=== PATIENT | female | born 1990 | race Caucasian/White ===

== ENCOUNTER 2019-09-19 11:22 | Inpatient (IN) | payer SELFPAY ==
[2019-09-19 11:32] VITALS: BP 126/80; PULSE 92; RESP 18; TEMP 36.9; O2SAT 100; BMI 22.1
--- NOTE | 2019-09-19 12:01 | W.ED.PSYCH ---
HPI - Psych General: Chief Complaint: Psychiatric Symptoms Stated Complaint: mhe Time Seen by Provider: 09/19/19 12:01 Source: family Mode of arrival: ambulatory Limitations: no limitations History of Present Illness: HPI Narrative: Patient is a 28-year-old female who presents to ED today along with her grandmother and mother for complaints of psychosis/altered mental status; family states patient was living in [place] and was doing several drugs daily while there; she was recently placed in shelter for 3 weeks and 2 weeks ago the parents picked her up and brought her home; grandmother states since she has been home she has been acting very paranoid, speaking to herself, and acting bizarrely; they brought patient here for mental health evaluation Relieving factors: none Exacerbating factors: none Context: recent drug abuse Review of Systems General: Reports: ROS unobtainable due to mental status (pt responds I don't know to the majority of my questions ) PFSH ED PFSH: Statuses (acute, chronic, etc) shown below reflect problem list status as previously entered and may not be historically accurate Family History (Updated 09/15/19 @ 11:13 by Karla Casas LPN) Mother Hypertension Social History (Updated 09/15/19 @ 11:14 by Karla Casas LPN) Smoking and tobacco status: current every day smoker Second hand smoke exposure: No Alcohol intake: former Physical Exam Const: COMMON NORMALS: no apparent distress, oriented x3, alert and well nourished GENERAL APPEARANCE: cooperative Resp: COMMON NORMALS: normal respiratory effort and clear to auscultation bilaterally AUSCULTATION: clear to auscultation bilaterally Cardio: COMMON NORMALS: regular rate and regular rhythm RATE: regular rate RHYTHM: regular rhythm Neuro: COMMON NORMALS: oriented x3 SENSORIUM/ORIENTATION: Yes alert Psych: COMMON NORMALS: cooperative and speech normal APPEARANCE: Yes grossly normal SPEECH: Yes normal speech MOOD & AFFECT: Yes flat affect THOUGHT PROCESS: disorganized and confused ATTENTION/CONCENTRATION: Yes attention grossly impaired and Yes concentration grossly impaired MEMORY/COGNITION: Yes cognition grossly intact JUDGEMENT: poor MDM - Psych Lab Data: Labs: Lab Results 09/19/19 09/19/19 Range/Units 12:43 12:43 WBC 9.2 (4.0-10.0) 10^3/ uL RBC 4.21 (4.1-5.3) 10^6/u L Hgb 12.7 (11.5-15.3) g/dL Hct 40.0 (37.0-47.0) % MCV 95.0 (81-99) fL MCH 30.2 (28.0-34.0) pg MCHC 31.8 (30.0-36.0) g/dL RDW 14.5 (12.1-15.1) % Plt Count 325 (130-400) 10^3/c mm MPV 8.3 (7.4-10.4) fL Neut % (Auto) 66.1 % Lymph % (Auto) 24.5 % Whiteside % (Auto) 6.6 % Eos % (Auto) 1.7 % Baso % (Auto) 0.7 % Neut # (Auto) 6.1 (1.8-7.7) 10^3/u L Lymph # (Auto) 2.3 (0.8-4.8) 10^3/u L Whiteside # (Auto) 0.6 (0.2-0.9) 10^3/u L Eos # (Auto) 0.2 (0.0-0.8) 10^3/u L Baso # (Auto) 0.1 (0.0-0.1) 10^3/u L Nucleated RBC % (a uto) 0 % Nucleated RBCs # 0.0 /100WBC Sodium 136 (136-145) mmol/L Potassium 4.2 (3.5-5.1) mmol/L Chloride 99 (98-107) mmol/L Carbon Dioxide 27 (22-29) mmol/L Anion Gap 14.2 (5-19) BUN 11 (6-20) mg/dL Creatinine 0.5 (0.5-0.9) mg/dL GFR Calculation 148.0 H (90-130) mL/min Glucose 101 (74-109) mg/dL Calcium 10.2 H (8.6-10.0) mg/Dl Total Bilirubin 0.5 (0.15-1.2) mg/dL AST 16 (0-32) U/L ALT 26 (0-33) U/L Alkaline Phosphata se 68 (35-105) IU/L Total Protein 7.4 (6.6-8.7) g/dL Albumin 4.7 (3.5-5.2) g/dL Globulin 2.7 (1.3-4.6) g/dL Salicylates < 0.3 L (3-10) mg/dL Acetaminophen < 5.0 L (10-30) ug/mL Ethyl Alcohol < 10 (0-10) mg/dL Imaging Data^: CT Head: Radiologist's impression: [address] [address] [address] Scan Report Signed Patient: Janeth Díaz MR#: [id number] : 1990 Acct:[id number] Age/Sex: 28 / F ADM Date: 09/19/19 Loc: ER Attending Dr: Ordering Physician: Ivana Holman Date of Service: 09/19/19 Procedure(s): CT head wo con* [id number] Accession Number(s): [id number] Report Number: [id number] WS: [id number] CT scan of the head, 09/19/2019 Clinical Data: AMS Comparison: None. DLP: 741.[address] scans at [facility] use at least one of these dose optimization techniques: automated exposure control; mA and/or kV adjustment per patient size (includes targeted exams where dose is matched to clinical indication); or iterative reconstruction. Findings: The ventricular system is normal without shift. No recent infarct or hemorrhage is seen. There are no abnormal intracerebral masses. The cerebellum and brainstem are not remarkable. Bony windows of the skull and skull base show no fractures or erosions. The mastoid air cells, internal auditory canals, sella turcica, intraorbital contents, and paranasal sinuses are unremarkable. CT/CT head wo con* [id number] Impression: Negative CT scan of the head Dictated By: Diane Harrell MD Signed By: Diane Harrell MD Signed Date/Time:09/19/19 1321 DD/ 1319 Discharge Plan Discharge Patient Disposition: Xfer Psychiatric Hosp Clinical Impression: Acute psychosis Condition: Stable Coding Level of Care Code ED Bracelet Former for Chg Fwd Exam Problem Focused
[2019-09-19 12:04] VITALS: BP 120/82; PULSE 91; RESP 16; TEMP 36.7; O2SAT 100
--- NOTE | 2019-09-19 12:07 | PC.NURSE ---
pt denies and si or hi, sitter not required.
--- NOTE | 2019-09-19 12:31 | CT_ITS ---
WS: [id number] CT scan of the head, 09/19/2019 Clinical Data: AMS Comparison: None. DLP: 741.[address] scans at [facility] use at least one of these dose optimization techniques: automat ed exposure control; mA and/or kV adjustment per patient size (includes targeted exams where dose is matched to clinical indication); or iterative reconstruction. Findings: The ventricular system is normal without shift. No recent infarct or hemorrhage is seen. There are no abnormal intracerebral masses. The cerebellum and brainstem are not remarkable. Bony windows of the skull and skull base show no fractures or erosions. The mastoid air cells, quality internship al auditory canals, sella turcica, intraorbital contents, and paranasal sinuses are unremarkable. CT/CT head wo con* [id number] Impression: Negative CT scan of the head
[2019-09-19 12:57] LABS: Basophils # 0.1 10^3/uL (0.0-0.1); Basophils % 0.7 %; Eosinophils # 0.2 10^3/uL (0.0-0.8); Eosinophils % 1.7 %; Hemoglobin 12.7 g/dL (11.5-15.3); Lymphocytes # 2.3 10^3/uL (0.8-4.8); Lymphocytes % 24.5 %; Mean Corpuscular HGB Conc 31.8 g/dL (30.0-36.0); Mean Corpuscular Hemoglobin 30.2 pg (28.0-34.0); Mean Platelet Volume 8.3 fL (7.4-10.4); Monocytes # 0.6 10^3/uL (0.2-0.9); Monocytes % 6.6 %; Neutrophils # 6.1 10^3/uL (1.8-7.7); Neutrophils % 66.1 %; Nucleated Red Blood Cells % 0 %; Platelet Count 325 10^3/cmm (130-400); Red Blood Count 4.21 10^6/uL (4.1-5.3); Red Cell Distribution Width 14.5 % (12.1-15.1); White Blood Count 9.2 10^3/uL (4.0-10.0)
[2019-09-19 13:08] LABS: Alanine Aminotransferase 26 U/L (0-33); Albumin Level 4.7 g/dL (3.5-5.2); Alkaline Phosphatase 68 IU/L (35-105); Anion Gap 14.2 (5-19); Aspartate Amino Transferase 16 U/L (0-32); Blood Urea Nitrogen 11 mg/dL (6-20); Calcium 10.2 mg/Dl (8.6-10.0); Carbon Dioxide 27 mmol/L (22-29); Chloride 99 mmol/L (98-107); Globulin 2.7 g/dL (1.3-4.6); Glucose 101 mg/dL (74-109); Potassium 4.2 mmol/L (3.5-5.1); Sodium 136 mmol/L (136-145); Total Bilirubin 0.5 mg/dL (0.15-1.2); Total Protein 7.4 g/dL (6.6-8.7)
[2019-09-19 13:10] LABS: Acetaminophen < 5.0 ug/mL (10-30); Alcohol Level < 10 mg/dL (0-10); Salicylate < 0.3 mg/dL (3-10)
[2019-09-19 13:53] LABS: HCG, Serum Qual Negative (Negative)
[2019-09-19 14:22] VITALS: BP 113/70; PULSE 88; RESP 18; O2SAT 98
[2019-09-19 14:31] LABS: Amphetamines Screen Urine Negative (Negative); Barbiturates Screen Urine Negative (Negative); Benzodiazepines Screen Urine Negative (Negative); Cocaine Screen Urine Negative (Negative); Opiate Screen Urine Negative (Negative); PCP Screen Urine Negative (Negative); THC Screen Urine Negative (Negative)
[2019-09-19 14:57] VITALS: BP 105/71; PULSE 80; RESP 18; TEMP 36.6; O2SAT 100
[2019-09-19] MEDS: ARIPiprazole 10 mg Tablet PO (16:29)
[2019-09-19 20:30] VITALS: BP 99/60; PULSE 96; RESP 16; TEMP 36.2; O2SAT 97
[2019-09-20 06:00] VITALS: BP 114/72; PULSE 73; RESP 15; TEMP 36.6; O2SAT 98
--- NOTE | 2019-09-20 07:32 | PM.NHP ---
Providers/Chief Complaint Admitting Physician: Chiki Ridley MD Chief Complaint: mhe HPI NPU History of Present Illness Janeth Díaz is a 28 year old female presented to the emergency room secondary to concerns raised by her family related to her having confusion and not functioning well. She was admitted to the neuro psych unit and initially tried to discharge AMA. Upon meeting with her and talking to her became clear that she was floridly psychotic had significant thought disorder and was incapable of making informed consent or managing even the basic daily challenges. She is a horrible historian with inability to really give any clear answers on just about anything. Her date is the only piece of information that she was able to access with limited difficulty. Otherwise essentially all historical data from her life is not reachable. She doesn't know if her parents are still, she didn't know where she was prior to being in [place] she does not how long she's been in [place] she does know she has siblings she has no any family history she has a known history of her childhood or anything else. She is able to identify his is having the inability of forming thoughts or understanding thoughts as clearly she is accustomed but outside of that acknowledgment of disability is not much else she can add to the conversation at this time. We discussed the risks benefits and alternatives of initiating Abilify and she endorsed understanding and agreed to proceed as is documented in his note. We are reaching out to the family to try to get collateral information and engaged them in assisting us in making decisions in her best interest. At her level of dysfunction we will likely have to move to a 21-day-hold. Meds NPU Home Medications Medication Instructions Recorded Confirmed Type No Known Home Medications 09/15/19 09/19/19 History Allergies Allergy/AdvReac Type Severity Reaction Status Date / Time cefixime [From Suprax] Allergy Severe anaphylaxis Verified 09/15/19 11:11 sertraline [From Zoloft] Allergy anaphylaxis Verified 09/15/19 11:11 PFSH NPU PFSH: Statuses (acute, chronic, etc) shown below reflect problem list status as previously entered and may not be historically accurate Family History (Updated 09/15/19 @ 11:13 by Karla Casas LPN) Mother Hypertension Social History (Updated 09/15/19 @ 11:14 by Karla Casas LPN) Smoking and tobacco status: current every day smoker Second hand smoke exposure: No Alcohol intake: former Mental Status Exam MSE Comments: This is a well-nourished well-developed slender white female with adequate progress, limiting grooming but appropriate eye contact. No abnormal movements. Cooperative with exam and no acute distress. Speech was normal rate and volume mood described as confused, affect congruent. Thought process organized. Thought content: Patient denied any suicidal or homicidal ideations, there were no delusions reported or noted, she denied any auditory or visual hallucinations. Attention and concentration are impaired and memory is unreliable/impaired but none were formally tested. She is alert and oriented times person and place. Insight and judgment are impaired. Vitals/I&O/Wt Last Vital Signs Temp 98.5 F 09/21/19 06:00 Pulse 79 09/21/19 06:00 Resp 18 09/21/19 06:00 BP 102/69 09/21/19 06:00 Pulse Ox 98 09/21/19 06:00 Weight last 48 hrs Weight 56.699 kg A&P Additional A&P Information Additional A&P Information: This is a 28-year-old white female with significant thought disorder which is manifesting with inability to give basic information or have a normal discussion who presents having started on Abilify yesterday and reports that she is tolerating the medication without difficulty. 1. Continue current medication. 2. Encourage individual, group and milieu therapy. 3. Continue every 15 minute checks for safety. 4. Get as much collateral information from family to try to get some sense of what her exposures have been. Involuntary Hold Information 96 Hour Hold: 96 Hour Involuntary Admission: No Attestations NPU Medical Necessity Statement*: Inpatient hospitalization is medically necessary and the clinically appropriate intervention at this time. She will be in the hospital for over 2 midnights. We will monitor medication and titrate to effect. Likely length of stay 4-6 days. Coding Level of Care Code Acute Instrument Technician Helper for Veronika Rosenberg
[2019-09-20] MEDS: ARIPiprazole 10 mg Tablet PO (08:39)
[2019-09-20 13:43] VITALS: BP 102/62; PULSE 116; RESP 20; TEMP 36.7; O2SAT 98
[2019-09-20 19:40] VITALS: BP 101/62; PULSE 108; RESP 18; TEMP 36.9; O2SAT 98
[2019-09-21 06:00] VITALS: BP 102/69; PULSE 79; RESP 18; TEMP 36.9; O2SAT 98
[2019-09-21] MEDS: ARIPiprazole 10 mg Tablet PO (08:57)
--- NOTE | 2019-09-21 10:31 | PM.NPN ---
Subjective NPU Subjective: Interval history: Janeth presents today reporting that she is feeling less anxious and down but still feeling very confused. We tried to revisit some historical data that was unavailable to her recollection during her initial evaluation yesterday and she continues to have profound deficits in thought processing and essentially has no access to her historical information and memories. She denies any problems with the Abilify and reports that she is eating and sleeping all right but she is really still challenged by the lives thought disorder. She was only able to identify that she remembers using a needle to inject drugs but she has no recollection of what drugs she was using. Mental Status Exam MSE Comments: This is a well-nourished well-developed slender white female with adequate dress, limiting grooming but appropriate eye contact. No abnormal movements. Cooperative with exam and no acute distress. Speech was normal rate and volume. Mood described as I don't know, affect congruent. Thought process disorganized. Thought content: Patient denied any suicidal or homicidal ideations, there were no delusions reported or noted, she denied any auditory or visual hallucinations. Attention and concentration are impaired and memory is unreliable/impaired but none were formally tested. She is alert and oriented times person and place. Insight and judgment are impaired. Vitals/I&O/Wt Last Vital Signs Temp 98.5 F 09/21/19 06:00 Pulse 79 09/21/19 06:00 Resp 18 09/21/19 06:00 BP 102/69 09/21/19 06:00 Pulse Ox 98 09/21/19 06:00 Weight last 48 hrs Weight 56.699 kg A&P Additional A&P Information Additional A&P Information: This is a 28-year-old white female with significant thought disorder which is manifesting with inability to give basic information or have a normal discussion who presents having started on Abilify yesterday and reports that she is tolerating the medication without difficulty. 1. Continue current medication. 2. Encourage individual, group and milieu therapy. 3. Continue every 15 minute checks for safety. 4. Get as much collateral information from family to try to get some sense of what her exposures have been Involuntary Hold Information 96 Hour Hold: 96 Hour Involuntary Admission: No Attestations NPU Medical Necessity Statement*: Inpatient hospitalization is medically necessary and the clinically appropriate intervention at this time. We will monitor medication and titrate to effect. Likely length of stay 4-6 days. Coding Level of Care Code Acute Academic Support Director for Veronika Rosenberg
[2019-09-21] MEDS: nicotine 21 mg Patch 1 PATCH TRANSDERMA (13:35)
[2019-09-21 14:00] VITALS: BP 110/73; PULSE 101; RESP 18; TEMP 36.7; O2SAT 97
[2019-09-21 19:52] VITALS: BP 101/62; PULSE 104; RESP 18; TEMP 36.8; O2SAT 97
[2019-09-22 06:00] VITALS: BP 104/78; PULSE 86; RESP 20; TEMP 36.9; O2SAT 97
--- NOTE | 2019-09-22 09:20 | PM.NPN ---
Subjective NPU Subjective: Interval history: Janeth presented today reporting that things are going better. It was the first day I was able to ask historical questions which should be simple and get any kind of clear responses. She was able to articulate that she was confused and that she is starting to think better for the first time in a while. We discussed the injection for Abilify although she reports she would be open to taking the medication regularly. We began discussing discharge in the near future. She reports that she is eating and sleeping well. Mental Status Exam MSE Comments: This is a well-nourished well-developed slender white female with adequate dress, improving grooming and appropriate eye contact. No abnormal movements. Cooperative with exam in no acute distress. Speech was normal rate and volume. Mood described as much better, affect congruent. Thought process more organized. Thought content: Patient denied any suicidal or homicidal ideations, there were no delusions reported or noted, she denied any auditory or visual hallucinations. Attention and concentration are more intact and memory is improving but none were formally tested. She is alert and oriented x 3. Insight and judgment are improving. Vitals/I&O/Wt Last Vital Signs Temp 98.2 F 09/22/19 20:40 Pulse 109 H 09/22/19 20:40 Resp 18 09/22/19 20:40 BP 102/59 09/22/19 20:40 Pulse Ox 98 09/22/19 20:40 A&P Additional A&P Information Additional A&P Information: This is a 28-year-old white female who presented with significant thought disorder manifesting with inability to give basic information or have a normal discussion who presents with significant improvement on Abilify. 1. Continue current medication. 2. Encourage individual, group and milieu therapy. 3. Continue every 15 minute checks for safety. 4. Encourage engagement in sober living treatment at the highest level of care to which she is willing to commit. Involuntary Hold Information 96 Hour Hold: 96 Hour Involuntary Admission: No Attestations NPU Medical Necessity Statement*: Inpatient hospitalization is medically necessary and the clinically appropriate intervention at this time. We will monitor medication and titrate to effect. Likely length of stay 1-2 days. Coding Level of Care Code Acute Junior Media Buyer for Veronika Rosenberg
[2019-09-22] MEDS: ARIPiprazole 10 mg Tablet PO (09:58)
[2019-09-22] MEDS: nicotine 21 mg Patch 1 PATCH TRANSDERMA (12:17)
[2019-09-22 13:57] VITALS: BP 109/72; PULSE 108; RESP 20; TEMP 36.7; O2SAT 98
[2019-09-22 20:40] VITALS: BP 102/59; PULSE 109; RESP 18; TEMP 36.8; O2SAT 98
[2019-09-23 06:00] VITALS: BP 143/87; PULSE 68; RESP 19; TEMP 36.4; O2SAT 98
[2019-09-23] MEDS: ARIPiprazole 10 mg Tablet PO (08:42)
[2019-09-23] MEDS: nicotine 2 mg Gum BUCCAL (10:05)
[2019-09-23 14:00] VITALS: BP 102/66; PULSE 91; RESP 19; TEMP 36.7; O2SAT 100
--- NOTE | 2019-09-23 15:54 | P.DS_ITS ---
Diagnoses at Discharge Discharge Diagnosis (1) Depressive disorder: Status: Acute Reason for Visit Reason for Visit: Reason For Visit: mhe Brief History: HPI NPU History of Present Illness Janeth Díaz is a 28 year old female presented to the emergency room secondary to concerns raised by her family related to her having confusion and not functioning well. She was admitted to the neuro psych unit and initially tried to discharge AMA. Upon meeting with her and talking to her became clear that she was floridly psychotic had significant thought disorder and was incapable of making informed consent or managing even the basic daily challenges. She is a horrible historian with inability to really give any clear answers on just about anything. Her date is the only piece of information that she was able to access with limited difficulty. Otherwise essentially all historical data from her life is not reachable. She doesn't know if her parents are still, she didn't know where she was prior to being in [place] she does not how long she's been in [place] she does know she has siblings she has no any family history she has a known history of her childhood or anything else. She is able to identify his is having the inability of forming thoughts or understanding thoughts as clearly she is accustomed but outside of that acknowledgment of disability is not much else she can add to the conversation at this time. We discussed the risks benefits and alternatives of initiating Abilify and she endorsed understanding and agreed to proceed as is documented in his note. We are reaching out to the family to try to get collateral information and engaged them in assisting us in making decisions in her best interest. At her level of dysfunction we will likely have to move to a 21-day-hold. Hospital Course Hospital Course Janeth presented to the emergency room having significant thought disorder and confusion with a significant history of addiction but reportedly no significant use in the past 5 weeks. She was admitted to the neuropsychiatric unit on a voluntary admission and immediately tried to discharge AMA. This repairer typewriter had a conversation with her and reason as best I could about her clear thought disorder and desire for us to help her and she agreed. She was initiated on Abilify 10 mg p.o. every morning and responded robustly. She day by day had significant improvement in clarity. We discussed the risks benefits and alternatives of starting the long-acting injection however she expressed a desire to continue with oral medication with an openness for the injection once they figure out logistically and financially how they would do that. During the hospitalization she had routine laboratory studies which were within normal limits except for a few outliers. Additionally, she had a general medical evaluation which was also within normal limits and revealed no acute processes. Discharge Summary At the time of discharge she denied all lethality, her mood had improved, her thought disorder was improving dramatically and she agreed to follow-up with the outpatient services arranged by social work. She had received the maximum benefit from an inpatient hospitalization, so she was discharged. Inpatient hospitalization is not medically necessary or the clinically appropriate intervention at this time. Patient is desirous of resuming outpatient treatment so was discharged. Involuntary Hold Information 96 Hour Hold: 96 Hour Involuntary Admission: No Mental Status Exam 2 MSE Comments: This is a well-nourished well-developed slender white female with adequate dress, improving grooming and appropriate eye contact. No abnormal movements. Cooperative with exam in no acute distress. Speech was normal rate and volume. Mood described as much better, affect congruent. Thought process more organized. Thought content: Patient denied any suicidal or homicidal ideations, there were no delusions reported or noted, she denied any auditory or visual hallucinations. Attention and concentration are more intact and memory is improving but none were formally tested. She is alert and oriented x 3. Insight and judgment are improving. Discharge Data Data Completed and Pending: Completed Studies During Hospitalization Category Date Time Status CT head wo con* 7 0450 Urgent Cat Scan 09/19/19 12:31 Completed Vitals: Last Vital Signs Temp 98.0 F 09/23/19 14:00 Pulse 91 09/23/19 14:00 Resp 19 H 09/23/19 14:00 BP 102/66 09/23/19 14:00 Pulse Ox 100 09/23/19 14:00 Discharge Plan Discharge Patient Disposition: Home, Self-Care Condition: Stable Prescriptions: New aripiprazole 10 mg Tablet 10 mg PO DAILY 30 Days Qty: 30 RF: 1 No Action No Known Home Medications RF: 0 Discharge Orders: Discharge Order (Routine); Ordered 09/23/19 Ordered By: Chiki Ridley Activity Restrictions/Additional Instructions: Follow-up at [facility] Walk-in hours 7:30-2:30 Thursday through Thursday at [facility] ([facility]) [address] [facility] [address] [place] [id number] Be sure to call and check on getting your appointment as soon as possible. It is recommended to get talk therapy and case management as well as psychiatric medication management. [facility] [place] is a resource to help address substance abuse issues. Address: [address] [place] [id number] This is an all women facility.Financial assistance may be available. Discharge Date/Time: 09/23/19 16:16 Discharge Attestations NPU Time Spent in Discharge Care*: greater than 30 min Specific Discharge Activities: Specific discharge activities: educating patient, educating and/or supporting family/caregiver, discussing with case management assistant/social workers/dc planners, documenting/other paperwork and evaluating patient/reviewing data Coding Level of Care Code Acute Inbound Call Center Representative for Veronika Rosenberg Diagnoses Depressive disorder F32.9
== END 2019-09-23 16:16 | disposition home or self-care (01) | DRG 881 ==
LOC: ER 13:37 → NP 14:18
PROVIDERS: Physician Assistant; Admitting Provider Psychiatry & Neurology Psychiatry; Emergency Provider Emergency Medicine; Visit Provider Psychiatry & Neurology Psychiatry
DX: F32.9 Major depressive disorder, single episode, unspecified (principal); F17.210 Nicotine dependence, cigarettes, uncomplicated
CPT/HCPCS: 36415; 70450; 80053; 80307; 84703; 85025; 99284

== ENCOUNTER → 2019-10-10 10:49 | Outpatient (BNVA) | payer SELFPAY | PROVIDERS: PCP Family Medicine; Visit Provider Family Medicine | DX: F41.1 Generalized anxiety disorder (principal); A64 Unspecified sexually transmitted disease; Z12.4 Encounter for screening for malignant neoplasm of cervix | CPT/HCPCS: 87491; 87591; 87661; 88175 ==

== ENCOUNTER 2020-03-04 02:51 | Emergency (ER) | payer MEDICAID, SELFPAY ==
[2020-03-04 02:56] VITALS: BP 121/75; PULSE 78; RESP 16; TEMP 36.9; O2SAT 98
[2020-03-04 04:17] VITALS: BP 98/60; PULSE 61; RESP 18; O2SAT 96
[2020-03-04 04:17] LABS: Basophils % 0.4 %; Eosinophils # 0.1 10^3/uL (0.0-0.8); Eosinophils % 1.3 %; Hematocrit 42.3 % (37.0-47.0); Hemoglobin 14.1 g/dL (11.5-15.3); Lymphocytes % 23.2 %; Mean Corpuscular HGB Conc 33.3 g/dL (30.0-36.0); Mean Corpuscular Hemoglobin 31.3 pg (28.0-34.0); Mean Corpuscular Volume 93.8 fL (81-99); Mean Platelet Volume 9.3 fL (7.4-10.4); Monocytes # 0.7 10^3/uL (0.2-0.9); Monocytes % 8.7 %; Neutrophils # 5.6 10^3/uL (1.8-7.7); Neutrophils % 66.2 %; Nucleated Red Blood Cells % 0 %; Platelet Count 224 10^3/cmm (130-400); Red Blood Count 4.51 10^6/uL (4.1-5.3); Red Cell Distribution Width 11.6 % (12.1-15.1); White Blood Count 8.4 10^3/uL (4.0-10.0)
[2020-03-04] MEDS: sodium chloride 0.9% 1,000 ML 999 ML IV (04:17)
--- NOTE | 2020-03-04 04:19 | ED_ITS ---
HPI - General Adult General: Chief complaint: General Medical Stated complaint: 16 weeks preg; back pain Time Seen by Provider: 03/04/20 03:43 History of Present Illness: HPI narrative: 29-year-old female who states that she is 16 weeks . She is a G4, P3. She presents with lower back and pelvic discomfort since last evening. She states it is hard to get comfortable. She denies any vaginal bleeding or discharge. She states she has been nauseated, but has not vomited. There is no fever. There is no diarrhea. There is no pain with urination. Onset (ago): hour(s) Location: pelvis Radiation: back Severity: moderate Quality: aching Pain Consistency: constant Relieving factors: none Exacerbating factors: movement Associated symptoms: Reports nausea; Deny chest pain, cough, dyspnea, fevers/chills, headache(s), rash or vomiting Review of Systems Const: Denies: fever(s) or chills Eyes: Denies: change in vision or blurry vision ENMT: Denies: odynophagia, dental pain, change in hearing, epistaxis, post nasal drip or sinus pain Card: Denies: chest pain Resp: Denies: dyspnea GI: Reports: nausea; Denies: vomiting : Denies: dysuria, urinary frequency, urinary urgency or hematuria Musc: Reports: back pain; Denies: neck pain Skin/Breast: Denies: rash, pruritus or erythema Neuro: Denies: headache(s), dizziness or vertigo Psych: Denies: anxiety PFSH ED PFSH: Medical History (Updated 03/04/20 @ 04:57 by Edouard Ovalles DO) Acute psychosis Chronic post-traumatic stress disorder BRAXTON (generalized anxiety disorder) BRAXTON (generalized anxiety disorder) 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 Surgical History (Updated 02/20/20 @ 22:27 by Kylah Ridley MD) Hx of tonsillectomy S/P tonsillectomy Family History Mother Hypertension Social History Smoking and tobacco status: former smoker Quit status (tobacco): not considering quitting Second hand smoke exposure: Yes Smoking risk assessment/counseling performed?: No Alcohol intake: never Desire information about substance/drug rehabilitation?: No Counseling given: Yes Other details last substance use: HAS USED OPIATES, METH, CRACK COCAINE, AND ACID Current gender identity: Female Female Reproductive History: Date of last menstrual period: 11/11/19 Physical Exam Const: GENERAL APPEARANCE: well developed ORIENTATION/CONSCIOUSNESS: Yes oriented to person, Yes oriented to place and Yes oriented to time HENMT: COMMON NORMALS: normocephalic, external ears normal and Normal external nose present HEAD & SCALP: normocephalic; no scalp tenderness FACE & SINUS: normal facial exam NOSE: Normal external nose present and No nasal discharge present EXTERNAL EAR: Yes external ears normal THROAT: posterior oropharynx normal; no peritonsillar mass Eye: COMMON NORMALS: Equal, round and reactive pupils present, EOMs intact bilaterally and conjunctivae normal EYELID: eyelids normal CONJUNCTIVA: Yes conjunctivae normal PUPIL: Yes Equal, round and reactive pupils present Neck/C-Spine: GENERAL: No tracheal deviation Chest: COMMONS NORMALS: normal inspection of the chest CHEST: No tenderness Resp: COMMON NORMALS: clear to auscultation bilaterally EFFORT & INSPECTION: No tachypneic, No respiratory distress, No retractions, No uses accessory muscles and No tracheal deviation AUSCULTATION: clear to ausc ultation bilaterally, no rhonchi, no wheezes and lung sounds not diminished Cardio: COMMON NORMALS: regular rate and regular rhythm RATE: regular rate RHYTHM: regular rhythm HEART SOUNDS: no murmurs PERIPHERAL PULSES: radial pulses present GI: INSPECTION: No abdominal distension AUSCULTATION: No Hyperactive bowel sounds present and No Hypoactive bowel sounds present PALPATION: Yes Tenderness to palpation present (GI) (Diffuse lower), No Guarding due to palpation present (GI) and No Rigid due to palpation PERCUSSION: no dullness to percussion and no tympanic to percussion Neuro: SENSORIUM/ORIENTATION: Yes oriented to person, Yes oriented to place and Yes oriented to time Psych: COMMON NORMALS: mental status grossly normal Skin: COMMON NORMALS: no rashes or lesions noted GENERAL SKIN EXAM: no rashes or lesions noted Course Vital Signs: Vital signs: Vital Signs Temperature 98.4 F 03/04/20 02:56 Pulse Rate 77 03/04/20 04:51 Respiratory Rate 17 03/04/20 04:51 Blood Pressure 99/61 03/04/20 04:51 Pulse Oximetry 97 03/04/20 04:51 MDM - General Adult MDM Narrative: Medical decision making narrative: 29-year-old G4, P3. She is experiencing lower abdominal bilateral and back discomfort. It is crampy in nature. There is no vaginal bleeding or discharge. Bedside ultrasound reveals a normal-appearing fetus measuring 17 weeks 1 day by [facility]PD. There is positive movement. Heart rate is 170. There is an appropriate fluid level. White blood cell count 8.4. Hemoglobin 14. Electrolytes and renal function are normal. Urinalysis is negative. She will be allowed home. Lab Data: Labs: Lab Results 03/04/20 03/04/20 03/04/20 Range/Units 04:10 04:10 04:10 WBC 8.4 (4.0-10.0) 10^3/ uL RBC 4.51 (4.1-5.3) 10^6/u L Hgb 14.1 (11.5-15.3) g/dL Hct 42.3 (37.0-47.0) % MCV 93.8 (81-99) fL MCH 31.3 (28.0-34.0) pg MCHC 33.3 (30.0-36.0) g/dL RDW 11.6 L (12.1-15.1) % Plt Count 224 (130-400) 10^3/c mm MPV 9.3 (7.4-10.4) fL Neut % (Auto) 66.2 % Lymph % (Auto) 23.2 % [place] % (Auto) 8.7 % Eos % (Auto) 1.3 % Baso % (Auto) 0.4 % Neut # (Auto) 5.6 (1.8-7.7) 10^3/u L Lymph # (Auto) 2.0 (0.8-4.8) 10^3/u L [place] # (Auto) 0.7 (0.2-0.9) 10^3/u L Eos # (Auto) 0.1 (0.0-0.8) 10^3/u L Baso # (Auto) 0.0 (0.0-0.1) 10^3/u L Nucleated RBC % (a uto) 0 % Nucleated RBCs # 0.0 /100WBC Sodium 138 (136-145) mmol/L Potassium 4.5 (3.5-5.1) mmol/L Chloride 100 (98-107) mmol/L Carbon Dioxide 24 (22-29) mmol/L Anion Gap 18.5 (5-19) BUN 7 (6-20) mg/dL Creatinine 0.5 (0.5-0.9) mg/dL GFR Calculation 146.9 H (90-130) mL/min Glucose 84 (65-115) mg/dL Calculated Osmolal ity 281 L (285-295) mOsm/k g Calcium 9.8 (8.5-10.5) mg/dL Total Bilirubin 0.2 (0.15-1.2) mg/dL AST 15 (0-32) U/L ALT 9 (0-33) U/L Alkaline Phosphata se 42 (35-105) IU/L Total Protein 7.1 (6.6-8.7) g/dL Albumin 4.4 (3.5-5.2) g/dL Globulin 2.7 (1.3-4.6) g/dL Lipase 37 (13-60) U/L Ser , [place] 20117.00 mIU/mL Urine Color Straw (Yellow) Urine Appearance Clear (CLEAR) Urine pH 7 (5-7) Ur Specific Gravit y 1.005 (1.005-1.030) Urine Protein Neg (Negative) Urine Glucose (UA) Norm (Normal) Urine Ketones Negative (Negative) Urine Blood Neg (Negative) Urine Nitrate Negative (Negative) Urine Bilirubin Neg (NEGATIVE) Urine Urobilinogen Norm (Negative) mg/dL Ur Leukocyte [place] ase Negative (Negative) Discharge Plan Discharge Patient Disposition: Home, Self-Care Clinical Impression: Back pain affecting in second trimester Condition: Stable Prescriptions: No Action prenat.vits,venus,[id number] Tablet 1 tab PO DAILY RF: 0 buspirone 15 mg tablet 15 mg PO .3x daily Qty: 90 RF: 2 Discharge Orders: Discharge Order (Routine); Ordered 03/04/20 Ordered By: Edouard Ovallse Referrals: Kylah Ridley MD [Primary Care Provider] - 4-7 days Discharge Diet: Usual diet Discharge Activity: Increase activity as tolerated Patient Instructions: Round Ligament Pain Activity Restrictions/Additional Instructions: Return for fever greater than 100, vaginal bleeding or discharge, worsening pain, vomiting liquids or medications, other concerning symptoms Coding Level of Care Code ED Extension Service Specialist for Chg Fwd Exam Comprehensive
[2020-03-04 04:29] LABS: Add Urine Microscopic? NO
[2020-03-04 04:36] LABS: Urine Appearance Clear (CLEAR); Urine Color Straw (Yellow)
[2020-03-04 04:37] LABS: Bilirubin Urine Neg (NEGATIVE); Blood Urine Neg (Negative); Glucose Urine UA Norm (Normal); Ketones Urine Negative (Negative); Leukocyte Esterase Urine Negative (Negative); Nitrate Urine Negative (Negative); Protein Urine Neg (Negative); Specific Gravity, Urine 1.005 (1.005-1.030); Urobilinogen Urine Norm (Negative); pH Urine 7 (5-7)
[2020-03-04 04:41] LABS: Alanine Aminotransferase 9 U/L (0-33); Albumin Level 4.4 g/dL (3.5-5.2); Alkaline Phosphatase 42 IU/L (35-105); Anion Gap 18.5 (5-19); Aspartate Amino Transferase 15 U/L (0-32); Blood Urea Nitrogen 7 mg/dL (6-20); Calcium 9.8 mg/dL (8.5-10.5); Carbon Dioxide 24 mmol/L (22-29); Chloride 100 mmol/L (98-107); Globulin 2.7 g/dL (1.3-4.6); Glomerular Filtration Rate 146.9 mL/min (90-130); Glucose 84 mg/dL (65-115); Lipase 37 U/L (13-60); Osmolality Calculated 281 mOsm/kg (285-295); Potassium 4.5 mmol/L (3.5-5.1); Sodium 138 mmol/L (136-145); Total Bilirubin 0.2 mg/dL (0.15-1.2); Total Protein 7.1 g/dL (6.6-8.7)
[2020-03-04 04:51] VITALS: BP 99/61; PULSE 77; RESP 17; O2SAT 97
[2020-03-04 05:17] VITALS: BP 97/59; PULSE 66; RESP 17; O2SAT 97
[2020-03-04 05:43] VITALS: BP 91/55; PULSE 67; RESP 15; O2SAT 96
== END 2020-03-04 05:45 | disposition home or self-care (01) ==
PROVIDERS: Emergency Provider Emergency Medicine; PCP Family Medicine
DX: O26.892 Other specified pregnancy related conditions, second trimester (principal); M54.9 Dorsalgia, unspecified; Z3A.16 16 weeks gestation of pregnancy; Z87.891 Personal history of nicotine dependence
CPT/HCPCS: 12345; 80053; 81003; 83690; 84702; 85025; 96360; 99283; J7030

== ENCOUNTER → 2020-03-23 12:58 | Outpatient (BNVA) | payer MEDICAID, SELFPAY | PROVIDERS: PCP Family Medicine; Visit Provider Nurse Practitioner Women's Health | DX: O09.899 Supervision of other high risk pregnancies, unspecified trimester (principal); O09.30 Supervision of pregnancy with insufficient antenatal care, unspecified trimester; O99.340 Other mental disorders complicating pregnancy, unspecified trimester; F41.9 Anxiety disorder, unspecified; F19.11 Other psychoactive substance abuse, in remission; O99.332 Smoking (tobacco) complicating pregnancy, second trimester; O09.299 Supervision of pregnancy with other poor reproductive or obstetric history, unspecified trimester | CPT/HCPCS: 80053; 80307; 81000; 85027; 86592; 86762; 86787; 86803; 86850; 86900; 87340; 87806 ==

== ENCOUNTER → 2020-04-02 15:11 | Outpatient (BNVA) | payer MEDICAID, SELFPAY | PROVIDERS: PCP Family Medicine; Visit Provider Obstetrics & Gynecology | DX: O09.30 Supervision of pregnancy with insufficient antenatal care, unspecified trimester (principal) | CPT/HCPCS: 81000; 87491; 87591 ==

== ENCOUNTER → 2020-04-10 14:05 | Outpatient (BNVA) | payer MEDICAID, SELFPAY | PROVIDERS: PCP Family Medicine; Visit Provider Obstetrics & Gynecology | DX: Z36.89 Encounter for other specified antenatal screening (principal) | CPT/HCPCS: 76805 ==

== ENCOUNTER → 2020-05-18 08:47 | Outpatient (BNVA) | payer MEDICAID, SELFPAY ==
[2020-05-11 09:13] VITALS: BP 109/66; BMI 25.2
== END ==
PROVIDERS: PCP Family Medicine; Visit Provider Obstetrics & Gynecology
DX: O99.322 Drug use complicating pregnancy, second trimester (principal); Z3A.00 Weeks of gestation of pregnancy not specified
CPT/HCPCS: 80307; 81000

== ENCOUNTER → 2020-05-25 15:28 | Outpatient (BNVA) | payer MEDICAID, SELFPAY ==
[2020-05-11 09:13] VITALS: BP 109/66; BMI 25.2
== END ==
PROVIDERS: PCP Family Medicine; Visit Provider Obstetrics & Gynecology
DX: O09.892 Supervision of other high risk pregnancies, second trimester (principal); Z3A.28 28 weeks gestation of pregnancy
CPT/HCPCS: 81000; 82950; 85027

== ENCOUNTER → 2021-07-03 08:58 | Outpatient (BNVA) | payer MEDICAID, SELFPAY ==
[2020-05-11 09:13] VITALS: BP 109/66; BMI 25.2
== END ==
PROVIDERS: PCP Family Medicine; Visit Provider Family Medicine
DX: Z32.02 Encounter for pregnancy test, result negative (principal)
CPT/HCPCS: 81025

== ENCOUNTER 2021-10-08 11:26 | Emergency (ER) | payer MEDICAID, SELFPAY ==
[2020-05-11 09:13] VITALS: BP 109/66; BMI 25.2
--- NOTE | 2021-10-08 11:29 | XR_ITS ---
WS: [id number] RIGHT SHOULDER: 3 VIEW(S) TECHNIQUE: Internal and external rotation with Y view. HISTORY: pain COMPARISON: None available. No fracture or dislocation or soft tissue abnormality. Very mild narrowing of the AC joint. Glenohumeral joint is normal. RIGHT upper thorax is negative. XR/XR shoulder RT min 2V* [id number] IMPRESSION: Mild AC joint narrowing.
[2021-10-08 11:35] VITALS: BP 109/72; PULSE 76; RESP 16; TEMP 36.4; O2SAT 97; BMI 26.5
--- NOTE | 2021-10-08 12:09 | W.ED.UPPEXIN ---
HPI - Extremity Injury (Upper) General: Chief Complaint: Extremity Injury, Upper Stated Complaint: RIGHT SHOULDER PAIN Time Seen by Provider: 10/08/21 11:42 Source: patient Mode of arrival: ambulatory Limitations: no limitations History of Present Illness: HPI narrative: Patient is a 30-year-old female presents to ED today with complaint of right shoulder pain. Patient states she was using new exercise equipment and immediately felt something painful to her right clavicle and is concerned she could have broke it. She has not noticed any swelling. Patient is maintaining fairly good range of motion of the shoulder joint. No redness or warmth noted. No numbness, tingling, loss of sensation to her right arm. MD complaint: injury to: right and shoulder Onset (ago): day(s) Other Extremity Injury: Right: shoulder Other injuries: none Place: other (gym) Severity: mild Relieving factors: immobilization Exacerbating factors: movement of extremity Associated symptoms: Reports no associated symptoms; Denies neck pain or weakness in extremities Review of Systems Const: Denies: fever(s), chills or body aches Musc: Reports: joint pain (R shoulder); Denies: neck pain, back pain, extremity pain, extremity swelling, joint swelling, joint redness or joint warmth Neuro: Denies: numbness in extremities, weakness in extremities or sensory changes PFSH ED PFSH: Medical History Acute psychosis Benign pigmented nevus BRAXTON (generalized anxiety disorder) History of pelvic hematoma (~2010) post vaginal delivery; required blood transfusion Surgical History H/O dilation and curettage (~2016) SAB H/O removal of cyst (~2014) removal of mass from left ovary Hx of tonsillectomy Family History Mother Hypertension Family history of thyroid problem Grandmother Diabetes Maternal great grandmother Grandfather Heart disease Maternal grandfather Social History Smoking and tobacco status: current every day smoker cigarettes Packs smoked per day: 0.25 Quit status (tobacco): has quit using tobacco Year quit tobacco: 01/2020 Former quit date comment: Was smoking 1/2 PPD. Smoking risk assessment/counseling performed?: No Alcohol intake: former Former alcohol use details: Social drinking before Additional social history: Tobacco use: Former smoker 1/2 ppd; quit 01/2020 Alcohol use: Social before Drug use: Former crack cocaine, acid, opiates (one time use); meth and heroin- daily IV use Female Reproductive History: Date of last menstrual period: 11/11/19 Physical Exam Const: COMMON NORMALS: no acute distress, average body habitus, patient oriented x3, no limitations, healthy appearing, alert and well nourished Neck/C-Spine: COMMON NORMALS: full ROM CERVICAL SPINE: No Cervical spine tenderness and No Paracervical muscle tenderness Extremity: COMMON NORMALS: normal to inspection GENERAL: Yes normal exam except as noted RIGHT UPPER EXTREMITY: Yes shoulder joint (TTP mid clavicle; no bony deformity noted) Right shoulder: Yes Right shoulder joint ROM exam (discomfort elicited with abduction/ER but maintains fairly normal ROM) and Yes Right shoulder joint neurovascular exam (normal) Neuro: COMMON NORMALS: patient oriented x3, moves all extremities, no focal motor deficits and no sensory deficits noted SENSORIUM/ORIENTATION: Yes alert Course Vital Signs: Vital signs: Vital Signs Temperature 97.6 F 10/08/21 11:35 Pulse Rate 76 10/08/21 11:35 Respiratory Rate 16 10/08/21 11:35 Blood Pressure 109/72 10/08/21 11:35 Pulse Oximetry 97 10/08/21 11:35 MDM - Extremity Injury (Upper) Lab Data Labs: Radiology Impressions Shoulder X-Ray 10/08/21 11:29 IMPRESSION: Mild AC joint narrowing. Imaging Data XR R shoulder: My impression: NAD Radiologist's impression: [address] [address] XRay Report Signed Patient: Janeth Waters Unit #: [id number] : 1990 Age/Sex: 30 / F ADM Date: 10/08/21 Loc: ER Room/Bed: Attending Dr: Ordering Provider/Ordering MD: Ivana Holman Date of Service: 10/08/21 Procedure(s): XR shoulder RT min 2V* [id number] Accession Number(s): [id number] Report Number: [id number] WS: [id number] RIGHT SHOULDER: 3 VIEW(S) TECHNIQUE: Internal and external rotation with Y view. HISTORY: pain COMPARISON: None available. No fracture or dislocation or soft tissue abnormality. Very mild narrowing of the AC joint. Glenohumeral joint is normal. RIGHT upper thorax is negative. XR/XR shoulder RT min 2V* [id number] IMPRESSION: Mild AC joint narrowing. Dictated By: Eleonora Miller DO Signed By: Eleonora Miller DO Signed Date/Time: 10/08/21 122 DD/ 1222 Discharge Plan Discharge Patient Disposition: Home Clinical Impression: Pain of right clavicle Condition: Stable Prescriptions: No Action medroxyprogesterone [Depo-Provera] 150 mg/mL syringe 150 mg IM ONCE 90 Days Qty: 1 3RF Rx Instructions: bring to clinic for injection 340B Discharge Orders: Discharge ED (Routine); Ordered 10/08/21 Ordered By: Ivana Holman Referrals: Kylah Ridley MD [Primary Care Provider] - Coding Level of Care Code ED Automobile Or Truck Rental Dispatcher for Chg Fwd Exam Expanded Problem Focused
[2021-10-08 12:31] VITALS: BP 123/82; PULSE 68; RESP 16; O2SAT 98
== END 2021-10-08 12:33 | disposition home or self-care (01) ==
PROVIDERS: Emergency Provider Physician Assistant; PCP Family Medicine
DX: M25.511 Pain in right shoulder (principal); F17.210 Nicotine dependence, cigarettes, uncomplicated
CPT/HCPCS: 73030; 99282

== ENCOUNTER → 2022-06-18 09:20 | Outpatient (BNVA) | payer MEDICAID, SELFPAY ==
[2020-05-11 09:13] VITALS: BP 109/66; BMI 25.2
== END ==
PROVIDERS: PCP Family Medicine; Visit Provider Family Medicine
DX: Z11.3 Encounter for screening for infections with a predominantly sexual mode of transmission (principal); Z20.2 Contact with and (suspected) exposure to infections with a predominantly sexual mode of transmission; Z72.51 High risk heterosexual behavior; F41.1 Generalized anxiety disorder; F43.12 Post-traumatic stress disorder, chronic; Z86.59 Personal history of other mental and behavioral disorders; F19.11 Other psychoactive substance abuse, in remission
CPT/HCPCS: 81025; 87491; 87591; 87661

== ENCOUNTER → 2022-07-17 11:40 | Outpatient (BNVA) | payer MEDICAID, SELFPAY ==
[2020-05-11 09:13] VITALS: BP 109/66; BMI 25.2
== END ==
PROVIDERS: PCP Family Medicine; Visit Provider Family Medicine
DX: F41.1 Generalized anxiety disorder (principal); F43.12 Post-traumatic stress disorder, chronic; Z86.59 Personal history of other mental and behavioral disorders; M25.511 Pain in right shoulder; M25.512 Pain in left shoulder; M89.8X1 Other specified disorders of bone, shoulder
CPT/HCPCS: 73000; 73030

== ENCOUNTER → 2023-02-03 13:25 | Outpatient (BNVA) | payer MEDICAID, SELFPAY ==
[2020-05-11 09:13] VITALS: BP 109/66; BMI 25.2
== END ==
PROVIDERS: PCP Family Medicine; Visit Provider Family Medicine
DX: R53.83 Other fatigue (principal); E55.9 Vitamin D deficiency, unspecified; Z13.6 Encounter for screening for cardiovascular disorders
CPT/HCPCS: 80053; 80061; 82607; 82652; 84443; 85025

== ENCOUNTER → 2023-02-11 11:30 | Outpatient (BNVA) | payer MEDICAID, SELFPAY ==
[2020-05-11 09:13] VITALS: BP 109/66; BMI 25.2
== END ==
PROVIDERS: PCP Family Medicine; Visit Provider Psychiatry & Neurology Psychiatry
DX: Z79.899 Other long term (current) drug therapy (principal)
CPT/HCPCS: 80061; 83036

== ENCOUNTER → 2023-03-25 13:50 | Outpatient (BNVA) | payer MEDICAID, SELFPAY ==
[2023-02-19 11:34] VITALS: BP 108/69; BMI 28.2
== END ==
PROVIDERS: PCP Family Medicine; Visit Provider Family Medicine
DX: Z12.4 Encounter for screening for malignant neoplasm of cervix (principal); N89.8 Other specified noninflammatory disorders of vagina; Z20.2 Contact with and (suspected) exposure to infections with a predominantly sexual mode of transmission; Z01.419 Encounter for gynecological examination (general) (routine) without abnormal findings
CPT/HCPCS: 81000; 87491; 87591; 87624; 87661

== ENCOUNTER 2023-05-14 18:11 | Inpatient (IN) | payer MEDICAID, SELFPAY ==
[2023-02-19 11:34] VITALS: BP 108/69; BMI 28.2
[2023-05-14 18:23] VITALS: BP 118/83; PULSE 102; RESP 18; TEMP 36.5; O2SAT 96; BMI 21.5
--- NOTE | 2023-05-14 18:31 | ED.C_ITS ---
HPI - Psych General: Chief Complaint: Psychiatric Symptoms Stated Complaint: PSYCH EVALUATION Time Seen by Provider: 05/14/23 18:13 Source: patient and police Mode of arrival: other Limitations: no limitations History of Present Illness: 32-year-old female here with police for acute psychosis. Patient states that she believes that that people are trying to kidnap her she also states that she has been having needles implanted in her stomach by the [employer]. Patient is acutely psychotic here she does have a history of borderline personality disorder along with some psychiatric issues in the past she denies any recent drug or alcohol abuse. Associated symptoms: Reports visual hallucinations; Deny depression Review of Systems Const: Denies: fever(s), chills, body aches or change in appetite ENMT: Denies: throat pain or dental pain Card: Denies: chest pain Resp: Denies: dyspnea GI: Denies: abdominal pain, nausea, vomiting or diarrhea : Denies: dysuria Musc: Denies: neck pain or back pain Skin/Breast: Denies: rash Neuro: Denies: headache(s) Psych: Reports: paranoia and visual hallucinations; Denies: depression PFSH ED PFSH: Medical History Acute psychosis Benign pigmented nevus BRAXTON (generalized anxiety disorder) History of pelvic hematoma (~2010) post vaginal delivery; required blood transfusion Psychiatric care Surgical History H/O dilation and curettage (~2016) SAB H/O removal of cyst (~2014) removal of mass from left ovary Hx of tonsillectomy Family History (Reviewed 03/25/23 @ 07:42 by Tawana Miller [facility]) Mother Hypertension Family history of thyroid problem Grandmother Diabetes Maternal great grandmother Grandfather Heart disease Maternal grandfather Social History Smoking and tobacco status: current every day smoker cigarettes Packs smoked per day: 0.25 Years cigarettes smoked: 7 Quit status (tobacco): quit date established Planned quit date: 02/16/23 Second hand smoke exposure: Yes Smoking risk assessment/counseling performed?: Yes (Client scheduled for TTS) Alcohol intake: former Former alcohol use details: Social drinking before Substance/Drug Use: former Date of last use: 08/2019: History of methamphetamine and heroin. Also used acid, crack cocaine Adopted: No Caregiver/support person: No Lives independently: No Household members: family Housing: Other Details: [place] with step dad Marital status: Number of children: 3 Highest education level completed: High School Graduate service: No Current occupational status: employed Current occupational exposures/hazards: No Pets and animals: No Leisure activites: music Sexually active: No Do you think of yourself as: Bisexual Current gender identity: Female Crystal/Mandaen: Mandaeism Agree to transfusion: Yes Financial difficulty paying for basics: Hard Additional social history: Tobacco use: Former smoker 1/2 ppd; quit 01/2020 Alcohol use: Social before Drug use: Former crack cocaine, acid, opiates (one time use); meth and heroin- daily IV use Female Reproductive History: Para: 3 Physical Exam Const: COMMON NORMALS: no acute distress, patient oriented x3 and healthy appearing HENMT: COMMON NORMALS: normocephalic and atraumatic HEAD & SCALP: normocep halic and atraumatic Neck/C-Spine: COMMON NORMALS: full ROM and supple Chest: COMMONS NORMALS: normal inspection of the chest Resp: COMMON NORMALS: normal respiratory effort, No retractions, No use of accessory muscles and clear to auscultation bilaterally AUSCULTATION: clear to auscultation bilaterally Cardio: COMMON NORMALS: regular rate, regular rhythm and No murmurs present (Cardio) RATE: regular rate RHYTHM: regular rhythm GI: COMMON NORMALS: Normal to inspection, nondistended, normoactive bowel sounds present, Soft to palpation, non-tender and no masses PALPATION: Yes Soft to palpation Extremity: COMMON NORMALS: normal to inspection and full ROM Neuro: COMMON NORMALS: patient oriented x3, moves all extremities and no focal motor deficits Psych: COMMON NORMALS: mental status grossly normal and cooperative ATTITUDE: Yes paranoid THOUGHT PROCESS: Illogical thought process present Skin: COMMON NORMALS: no rashes or lesions noted and no wounds GENERAL SKIN EXAM: no rashes or lesions noted Course Vital Signs: Vital signs: Vital Signs Temperature 97.7 F 05/14/23 18:23 Pulse Rate 102 H 05/14/23 18:23 Respiratory Rate 18 05/14/23 18:23 Blood Pressure 118/83 05/14/23 18:23 Pulse Oximetry 96 05/14/23 18:23 Oxygen Delivery Me thod Room Air 05/14/23 18:23 MDM - Psych Medical Decision Making Patient presents with acute psychosis with hallucinations patient is medically cleared I spoke to psychiatrist will admit to the psychiatric unit. Medical Records I reviewed the patient's medical records. Lab Data I reviewed the patient's lab results. 05/14/23 18:48 05/14/23 18:48 Laboratory Results WBC 9.28 10^3/uL (3.29-11.43) 05/14/23 18:48 RBC 4.65 10^6/uL (3.85-5.65) 05/14/23 18:48 Hgb 14.60 g/dL (11.27-16.99) 05/14/23 18:48 Hct 43.5 % (36-47) 05/14/23 18:48 MCV 93.5 fl (85-98) 05/14/23 18:48 MCH 31.4 pg (27-33) 05/14/23 18:48 MCHC 33.6 g/dL (30-55) 05/14/23 18:48 RDW 11.9 % (12.1-15.1) L 05/14/23 18:48 Plt Count 245 10^3/cmm (157-399) 05/14/23 18:48 MPV 9.0 fL (7.4-10.4) 05/14/23 18:48 Neut % (Auto) 60.8 % 05/14/23 18:48 Lymph % (Auto) 26.8 % 05/14/23 18:48 [place] % (Auto) 9.4 % 05/14/23 18:48 Eos % (Auto) 1.8 % 05/14/23 18:48 Baso % (Auto) 0.8 % 05/14/23 18:48 Neut # (Auto) 5.64 10^3/uL (1.8-7.7) 05/14/23 18:48 Lymph # (Auto) 2.5 10^3/uL (0.8-4.8) 05/14/23 18:48 [place] # (Auto) 0.9 10^3/uL (0.2-0.9) 05/14/23 18:48 Eos # (Auto) 0.2 10^3/uL (0.0-0.8) 05/14/23 18:48 Baso # (Auto) 0.1 10^3/uL (0.0-0.1) 05/14/23 18:48 Nucleated RBC % (auto) 0 % 05/14/23 18:48 Nucleated RBCs # 0.0 /100WBC 05/14/23 18:48 Discharge Plan Discharge Patient Disposition: Admitted As Inpatient Clinical Impression: Acute psychosis Condition: Stable Coding Level of Care Code ED Animal Husbandry Worker for Veronika Rosenberg
[2023-05-14 18:55] LABS: Basophils # 0.1 10^3/uL (0.0-0.1); Basophils % 0.8 %; Eosinophils # 0.2 10^3/uL (0.0-0.8); Eosinophils % 1.8 %; Hematocrit 43.5 % (36-47); Lymphocytes # 2.5 10^3/uL (0.8-4.8); Lymphocytes % 26.8 %; Mean Corpuscular HGB Conc 33.6 g/dL (30-55); Mean Corpuscular Hemoglobin 31.4 pg (27-33); Mean Corpuscular Volume 93.5 fl (85-98); Monocytes # 0.9 10^3/uL (0.2-0.9); Monocytes % 9.4 %; Neutrophils # 5.64 10^3/uL (1.8-7.7); Neutrophils % 60.8 %; Nucleated Red Blood Cells % 0 %; Platelet Count 245 10^3/cmm (157-399); Red Blood Count 4.65 10^6/uL (3.85-5.65); Red Cell Distribution Width 11.9 % (12.1-15.1); White Blood Count 9.28 10^3/uL (3.29-11.43)
[2023-05-14 19:17] LABS: Alanine Aminotransferase 12 U/L (0-33); Albumin Level 4.7 g/dL (3.5-5.2); Alkaline Phosphatase 59 U/L (35-105); Anion Gap 14.4 (5-19); Aspartate Amino Transferase 12 U/L (0-32); Blood Urea Nitrogen 11 mg/dL (6-20); Carbon Dioxide 25 mmol/L (22-29); Chloride 105 mmol/L (98-107); Globulin 2.2 g/dL (1.3-4.6); Glomerular Filtration Rate 97.6 mL/min (90-130); Glucose 94 mg/dL (65-115); Osmolality Calculated 289 mOsm/kg (285-295); Potassium 4.4 mmol/L (3.5-5.1); Sodium 140 mmol/L (136-145); Total Bilirubin 0.2 mg/dL (0.15-1.2); Total Protein 6.9 g/dL (6.6-8.7)
[2023-05-14 19:18] LABS: Acetaminophen < 5.0 ug/mL (10-30); Alcohol Level < 10 mg/dL (0-10); Salicylate < 0.3 mg/dL (3-10)
--- NOTE | 2023-05-14 19:26 | PC.NURSE ---
96 hour hold rights reviewed with patient. Patient appeared to be very anxious and delusional at this time. She did not understand rights given. Dr. wilson. A copy was left at the bedside.
[2023-05-14 20:21] VITALS: BP 111/78; PULSE 86; RESP 18; TEMP 36.6; O2SAT 98
[2023-05-14 22:00] VITALS: BP 111/78; PULSE 86; RESP 18; TEMP 36.6; O2SAT 98
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
[2023-05-15] MEDS: ARIPiprazole 30 mg Tablet 15 MG PO (10:56)
[2023-05-15] MEDS: divalproex ER 500 mg Tablet (24H) PO (10:57)
[2023-05-15 11:11] LABS: Amphetamines Screen Urine Negative (Negative); Barbiturates Screen Urine Negative (Negative); Benzodiazepines Screen Urine Positive (Negative); Cocaine Screen Urine Negative (Negative); Opiate Screen Urine Negative (Negative); PCP Screen Urine Negative (Negative); THC Screen Urine Negative (Negative)
[2023-05-15 14:00] VITALS: BP 104/69; PULSE 82; RESP 16; TEMP 37; O2SAT 94
[2023-05-15 19:54] VITALS: BP 105/73; PULSE 86; RESP 17; TEMP 37.1; O2SAT 97
[2023-05-16 06:00] VITALS: BP 94/65; PULSE 96; RESP 16; O2SAT 97
[2023-05-16] MEDS: divalproex ER 500 mg Tablet (24H) PO (09:47)
[2023-05-16] MEDS: ARIPiprazole 30 mg Tablet 15 MG PO (09:47)
[2023-05-16 14:00] VITALS: BP 103/60; PULSE 72; RESP 15; TEMP 36.3; O2SAT 97
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
[2023-05-16 21:55] VITALS: BP 102/72; PULSE 104; RESP 17; TEMP 36.7; O2SAT 97
[2023-05-17 06:00] VITALS: BP 100/70; PULSE 124; RESP 18; O2SAT 96
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
[2023-05-17] MEDS: divalproex ER 500 mg Tablet (24H) PO (09:50)
[2023-05-17] MEDS: ARIPiprazole 30 mg Tablet 15 MG PO (09:50)
[2023-05-17 12:42] VITALS: BP 109/72; PULSE 113; RESP 18; TEMP 37.1; O2SAT 96
--- NOTE | 2023-05-17 14:01 | W.PM.NPUPNS ---
Subjective NPU Subjective: Patient is a 32-year-old white female with psychosis including bizarre delusions with a past history of polysubstance abuse but negative for substance abuse currently involuntarily. She had remained agitated and isolative on the milieu. She had continued to express concerns about people attempting to harm her and somehow invade her body. She had stated that people around her had been guilty of lies and stated that they would not get possession of her. Patient was not able to elaborate as to who they were. She had stated that she had felt that specific people had invaded her dreams and had somehow projected themselves into her even when she was not asleep. Mental Status Exam MSE Comments: She is a white female with poor hygiene and normal gait with no evidence of any abnormal involuntary motor movements tics or tremors appreciated. She remained guarded but less hostile today. There was no psychomotor agitation appreciated today. Her speech was with normal in rate and volume. Her mood was described as better. Her affect was intense but less irritable today. Her eye contact was intense. Her thought process was more linear but derailed later during the interview. She denied any auditory or visual hallucinations. She endorsed bizarre delusions. She was alert and oriented to person and place. She minimized any suicidal or homicidal ideation. She did not appear to be responding to internal stimuli. Her insight is poor. Her judgment is poor. Her impulse control appeared impaired. Vitals/I&O/Wt Last Vital Signs Temp 98.8 F 05/17/23 12:42 Pulse 113 H 05/17/23 12:42 Resp 18 05/17/23 12:42 BP 109/72 05/17/23 12:42 Pulse Ox 96 05/17/23 12:42 O2 Del Method Room Air 05/17/23 12:42 Weight last 48 hrs Weight 69.853 kg Data NPU 05/14/23 18:48 05/14/23 18:48 A&P Assessment and plan (1) Acute psychosis: Plan 32-year-old female who presents with psychosis in the absence of drug use with clear paranoid delusions and increased anger and agitation. She would likely require continued inpatient hospitalization. ?1. Encourage individual, group and milieu therapy. ?2. Recommend sober living treatment at the highest level of care to which the patient is willing to commit. 3. Therapeutic q-15 minute checks for safety.? 4. Continue depakote ER 500mg in am, and Abilify 15mg daily. Involuntary Hold Information 96 Hour Hold: 96 Hour Involuntary Admission: Yes 96 Hour Hold Ending Date: 05/21/23 Attestations NPU Medical Necessity Statement*: Inpatient hospitalization is medically necessary and deemed to ?be ?the clinically appropriate intervention ?at this time.? We will monitor/initiate medications and make changes as indicated.? ? The patient?s likely length of stay 7-10 days. Coding Level of Care Code Acute Code for Chg Fwd Diagnoses Acute psychosis F23
[2023-05-17 20:06] VITALS: BP 112/79; PULSE 125; RESP 18; TEMP 36.9; O2SAT 98
--- NOTE | 2023-05-17 20:21 | PC.NURSE ---
SITTING IN BED GETTING VITALS TAKEN. PT DENIES PAIN. DENIES SI/HI AND AVH AT THIS TIME. PT ISOLATES AND WITHDRAWN. ENCOURAGED TO INTERACT WITH STAFF AND PEERS. PT STAYED IN BED TO REST. DENIES DEPRESSION AND ANXIETY.
[2023-05-18 06:00] VITALS: RESP 17
[2023-05-18] MEDS: divalproex ER 500 mg Tablet (24H) PO (07:36)
[2023-05-18] MEDS: ARIPiprazole 30 mg Tablet 15 MG PO (07:37)
[2023-05-18 13:10] VITALS: BP 117/73; PULSE 70; RESP 15; TEMP 37; O2SAT 99
--- NOTE | 2023-05-18 13:41 | W.PM.NPUPNS ---
Subjective NPU Subjective: Patient is a 32-year-old white female with psychosis including bizarre delusions with a past history of polysubstance abuse but negative for substance abuse currently involuntarily. The patient remained actively paranoid. She had reported that people were trying to bother her and stated that she felt like people in her household had been possessed. She states that she is trying to fight being possessed by others and alluded to the FBI and [employer] being involved in her problems. She reported that she had slept better. She had continued to report that she did not wish to take medications. She had isolated her in her room throughout much of the day. Mental Status Exam MSE Comments: She is a white female with poor hygiene and normal gait with no evidence of any abnormal involuntary motor movements tics or tremors appreciated. She remained guarded but less hostile today. There was no psychomotor agitation appreciated today. Her speech was normal in rate and volume. Her mood was described as okay. Her affect was odd and subdued. Her eye contact was fair. Her thought process was more linear but derailed later during the interview. She denied any auditory or visual hallucinations. There is still continued presence of paranoid delusions. She was alert and oriented to person and place along with date. She minimized any suicidal or homicidal ideation. She did not appear to be responding to internal stimuli. Her insight is poor. Her judgment is poor. Her impulse control appeared impaired. Vitals/I&O/Wt Last Vital Signs Temp 98.6 F 05/18/23 13:10 Pulse 70 05/18/23 13:10 Resp 15 05/18/23 13:10 BP 117/73 05/18/23 13:10 Pulse Ox 99 05/18/23 13:10 O2 Del Method Room Air 05/17/23 20:06 Weight last 48 hrs Weight 69.853 kg Data NPU 05/14/23 18:48 05/14/23 18:48 A&P Assessment and plan (1) Acute psychosis: Plan 32-year-old female who presents with psychosis in the absence of drug use with clear paranoid delusions and increased anger and agitation. She would likely require continued inpatient hospitalization. ?1. Encourage individual, group and milieu therapy. ?2. Recommend sober living treatment at the highest level of care to which the patient is willing to commit. 3. Therapeutic q-15 minute checks for safety.? 4. Continue depakote ER 500mg in am, and Abilify 20mg daily. Involuntary Hold Information 96 Hour Hold: 96 Hour Involuntary Admission: Yes 96 Hour Hold Ending Date: 05/21/23 Attestations NPU Medical Necessity Statement*: Inpatient hospitalization is medically necessary and deemed to ?be ?the clinically appropriate intervention ?at this time.? We will monitor/initiate medications and make changes as indicated.? ? The patient?s likely length of stay 7-10 days. Coding Level of Care Code Acute Code for Chg Fwd Diagnoses Acute psychosis F23
[2023-05-18 20:14] VITALS: BP 108/69; PULSE 111; RESP 19; O2SAT 98
[2023-05-19 06:00] VITALS: BP 106/79; PULSE 80; RESP 17; O2SAT 96
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
[2023-05-19] MEDS: ARIPiprazole 10 mg Tablet 20 MG PO (08:23)
[2023-05-19] MEDS: divalproex ER 500 mg Tablet (24H) PO (08:23)
--- NOTE | 2023-05-19 10:59 | PC.NURSE ---
Patient's mother came to the unit and told this nurse that she feels that her daughter needs long-term treatment. Patient has a history of not taking her medications, abusing drugs, and then going into psychosis. Patient lives with parents. Parents stated that they are concerned for their safety while patient is there. Patient states that her parents are zombies and what do you do to zombies
[2023-05-19 14:00] VITALS: BP 108/71; PULSE 79; RESP 16; TEMP 36.6; O2SAT 99
--- NOTE | 2023-05-19 14:41 | P.NPUPN_ITS ---
Subjective NPU Subjective: Patient is a 32-year-old white female with psychosis including bizarre delusions with a past history of polysubstance abuse but negative for substance abuse currently involuntarily. Patient had continued to request that she be allowed to return home. The patient's family had given a message to the staff indicating that they felt unsafe with the patient returning home. She had remained isolative. She had reported that pulsating electronic signatures had been somehow placed in her body. She had reported that she would not stay here unless secret agents had suggested that she needed to be here. She reported having no thoughts of hurting herself. She had reported that she had had t emporary psychosis in the past from using methamphetamine but denied having any problems currently. Mental Status Exam MSE Comments: She is a white female with fair hygiene and normal gait with no evidence of any abnormal involuntary motor movements tics or tremors appreciated. She remained guarded on interview. There was no psychomotor agitation appreciated today. Her speech was normal in rate and volume. Her mood was described as good. Her affect was odd and subdued, and mood incongruent. Her eye contact was fair. Her thought process was more linear but derailed later during the interview. She denied any auditory or visual hallucinations. There is still continued presence of bizarre paranoid delusions. She was alert and oriented to person and place along with date. She minimized any suicidal or homicidal ideation. She did not appear to be responding to internal stimuli. Her insight is poor. Her judgment is poor. Her impulse control appeared impaired. Vitals/I&O/Wt Last Vital Signs Temp 98.6 F 05/18/23 13:10 Pulse 80 05/19/23 06:00 Resp 17 05/19/23 06:00 BP 106/79 05/19/23 06:00 Pulse Ox 96 05/19/23 06:00 O2 Del Method Room Air 05/19/23 06:00 Data NPU 05/14/23 18:48 05/14/23 18:48 A&P Assessment and plan (1) Acute psychosis: Plan 32-year-old female who presents with psychosis in the absence of drug use with clear paranoid delusions and increased anger and agitation. She would likely require continued inpatient hospitalization. ?1. Encourage individual, group and milieu therapy. ?2. Recommend sober living treatment at the highest level of care to which the patient is willing to commit. 3. Therapeutic q-15 minute checks for safety.? 4. Continue depakote ER 500mg in am, and Abilify 20mg daily. Involuntary Hold Information 96 Hour Hold: 96 Hour Involuntary Admission: Yes 96 Hour Hold Ending Date: 05/21/23 Attestations NPU Medical Necessity Statement*: Inpatient hospitalization is medically necessary and deemed to ?be ?the clinically appropriate intervention ?at this time.? We will monitor/initiate medications and make changes as indicated.? ? The patient?s likely length of stay 7-10 days. Coding Level of Care Code Acute Code for Chg Fwd Diagnoses Acute psychosis F23
[2023-05-19 19:56] VITALS: BP 106/71; PULSE 83; RESP 16; TEMP 36.9; O2SAT 98
[2023-05-20 06:00] VITALS: BP 98/69; PULSE 52; RESP 16; TEMP 36.9; O2SAT 96
[2023-05-20] MEDS: divalproex ER 500 mg Tablet (24H) PO (09:27)
[2023-05-20] MEDS: ARIPiprazole 10 mg Tablet 20 MG PO (09:27)
--- NOTE | 2023-05-20 13:45 | W.PM.NPUPNS ---
Subjective NPU Subjective: Patient is a 32-year-old white female with psychosis including bizarre delusions with a past history of polysubstance abuse but negative for substance abuse currently involuntarily. Patient had continued to indicate that she wished to be sent home despite family members reporting that the patient was not able to return home out of fears that patient had been more violent and the parents had felt threatened. She had continued to report a bizarre story and stated that she continued to feel threatened by agents of either the FBI or [employer] that had somehow engaged in applying technology to the patient's body and mind. Mental Status Exam MSE Comments: She is a white female with fair hygiene and normal gait with no evidence of any abnormal involuntary motor movements tics or tremors appreciated. She remained guarded and superficial on interview. There was no psychomotor agitation appreciated today. Her speech was normal in rate and volume. Her mood was described as good. Her affect was odd and subdued, and mood incongruent. Her eye contact was fair. Her thought process was more linear but derailed later during the interview. She denied any auditory or visual hallucinations. There is still continued presence of bizarre paranoid delusions. She was alert and oriented to person and place along with date. She minimized any suicidal or homicidal ideation. She did not appear to be responding to internal stimuli. Her insight is poor. Her judgment is poor. Her impulse control appeared impaired. Vitals/I&O/Wt Last Vital Signs Temp 98.4 F 05/20/23 06:00 Pulse 52 L 05/20/23 06:00 Resp 16 05/20/23 06:00 BP 98/69 05/20/23 06:00 Pulse Ox 96 05/20/23 06:00 O2 Del Method Room Air 05/19/23 14:00 Data NPU 05/14/23 18:48 05/14/23 18:48 A&P Assessment and plan (1) Acute psychosis: Plan 32-year-old female who presents with psychosis in the absence of drug use with clear paranoid delusions and increased anger and agitation. She would likely require continued inpatient hospitalization. ?1. Encourage individual, group and milieu therapy. ?2. Recommend sober living treatment at the highest level of care to which the patient is willing to commit. 3. Therapeutic q-15 minute checks for safety.? 4. Continue depakote ER 500mg in am, and Abilify 20mg daily. 5. Paperwork filed for 21 day hold today. Involuntary Hold Information 96 Hour Hold: 96 Hour Involuntary Admission: Yes 96 Hour Hold Ending Date: 05/21/23 Attestations NPU Medical Necessity Statement*: Inpatient hospitalization is medically necessary and deemed to ?be ?the clinically appropriate intervention ?at this time.? Forced medications may be necessary although patient taking previously prescribed medications. The patient?s likely length of stay 7-10 days. Coding Level of Care Code Acute Code for Chg Fwd Diagnoses Acute psychosis F23
[2023-05-20 14:00] VITALS: BP 104/69; PULSE 88; RESP 14; TEMP 36.8; O2SAT 98
[2023-05-20 20:24] VITALS: BP 105/68; PULSE 81; RESP 16; TEMP 36.9; O2SAT 98
[2023-05-21 06:00] VITALS: BP 106/69; PULSE 82; RESP 16; TEMP 36.4; O2SAT 100
[2023-05-21] MEDS: ARIPiprazole 10 mg Tablet 20 MG PO (09:48)
[2023-05-21] MEDS: divalproex ER 500 mg Tablet (24H) PO (09:48)
--- NOTE | 2023-05-21 12:12 | W.PM.NPUPNS ---
Subjective NPU Subjective: Patient presented today reporting a desire to be discharged but outside of that she was very disorganized and confused in general. Much of her statements were nonsensical and did not apply to the questions that were asked and did not lose the conversation forward as far as an understanding of her needs reflecting her clearly disorganized psychotic state. We discussed leaving 21-day hold hearing tomorrow and that she would have an opportunity to argue her case with the cargo tank mechanic. We discussed the importance of her continuing to take her medication providing the best chance for discharge sooner rather than later. Mental Status Exam MSE Comments: This is an overweight well-developed white female in hospital scrubs with limited grooming and eye contact. No abnormal movements except for mild psychomotor retardation. Mostly cooperative with exam in mild distress. Speech was slightly decreased rate and volume. Mood described as good, affect was odd and subdued. Thought process was disorganized. Thought content: Patient denied suicidal or homicidal ideation, there were no delusions reported but clear paranoid and odd/bizarre delusions present, she did not appear to be attending to internal stimuli. Attention and concentration was impaired and memory was unreliable but none were formally tested. She is alert and oriented to person and place. Insight, judgment and impulse control all appeared impaired. Vitals/I&O/Wt Last Vital Signs Temp 97.6 F 05/21/23 06:00 Pulse 82 05/21/23 06:00 Resp 16 05/21/23 06:00 BP 106/69 05/21/23 06:00 Pulse Ox 100 05/21/23 06:00 O2 Del Method Room Air 05/19/23 14:00 Data NPU 05/14/23 18:48 05/14/23 18:48 A&P Assessment and plan (1) Acute psychosis: Plan 32-year-old female who presents with psychosis in the absence of drug use with clear paranoid delusions and increased anger and agitation. She would likely require continued inpatient hospitalization. ?1. Encourage individual, group and milieu therapy. ?2. Recommend sober living treatment at the highest level of care to which the patient is willing to commit. 3. Therapeutic q-15 minute checks for safety.? 4. Continue depakote ER 500mg in am, and Abilify 20mg daily. 5. Paperwork filed for 21 day hold. 21-day hold hearing tomorrow, 05/22/2023 at 1400. Involuntary Hold Information 96 Hour Hold: 96 Hour Involuntary Admission: Yes 96 Hour Hold Ending Date: 05/21/23 Attestations NPU Medical Necessity Statement*: Inpatient hospitalization is medically necessary and deemed to ?be ?the clinically appropriate intervention ?at this time.? Forced medications may be necessary although patient taking previously prescribed medications. The patient?s likely length of stay 7-10 days. Coding Level of Care Code Acute Code for Chg Fwd Diagnoses Acute psychosis F23
[2023-05-21] MEDS: LORazepam 2 mg Tablet PO (12:52)
[2023-05-21] MEDS: diphenhydrAMINE 50 mg Capsule PO (12:52)
[2023-05-21] MEDS: haloperidol 5 mg Tablet PO (12:52)
--- NOTE | 2023-05-21 12:57 | PC.NURSE ---
PRN medication: Benadryl 50 mg, Haldol 5 mg, and Ativan 2 mg PO given to pt for increased agitation and anxiety. Pt became agitated when being informed that she would not be discharged today. Pt cooperative with medication administration. Will continue to monitor.
--- NOTE | 2023-05-21 13:52 | PC.NURSE ---
PRN Medication follow up: Benadryl 50 mg, Haldol 5 mg, and Ativan 2 mg PO effective. Pt expressed that medication helped and she is feeling better. Pt sitting in room, calm and cooperative. Will continue to monitor.
[2023-05-21 14:00] VITALS: BP 105/68; PULSE 72; RESP 15; TEMP 36.7; O2SAT 100
[2023-05-21 20:14] VITALS: BP 99/62; PULSE 86; RESP 16; TEMP 36.9; O2SAT 97
--- NOTE | 2023-05-22 06:40 | PC.NURSE ---
pt resting resp 18
[2023-05-22] MEDS: ARIPiprazole 10 mg Tablet 20 MG PO (09:01)
[2023-05-22] MEDS: divalproex ER 500 mg Tablet (24H) PO (09:01)
--- NOTE | 2023-05-22 12:06 | W.PM.NPUPNS ---
Subjective NPU Subjective: Patient presented today reporting that she is doing fine. She continues to be quite disorganized and unable to articulate the reasons why she feels she should leave today. We discussed her 21-day hold hearing today but she is confused and believes it has something to do with work. We discussed the fact that this was a hearing to determine whether or not she had to stay longer from her 96-hour hold and she was convinced that the hearing had something to do with work and not about her need to stay here longer. We discussed the treatment team's position that she is not ready to be discharged even though she is back on her medication her psychosis is clearly present. Mental Status Exam MSE Comments: This is an overweight well-developed white female in hospital scrubs with limited grooming and eye contact. No abnormal movements except for mild psychomotor retardation. Mostly cooperative with exam in mild distress. Speech was slightly decreased rate and volume. Mood described as good, affect was odd and subdued. Thought process was disorganized. Thought content: Patient denied suicidal or homicidal ideation, there were no delusions reported but clear paranoid and odd/bizarre delusions present, she did not appear to be attending to internal stimuli. Attention and concentration was impaired and memory was unreliable but none were formally tested. She is alert and oriented to person and place. Insight, judgment and impulse control all appeared impaired. Vitals/I&O/Wt Last Vital Signs Temp 98.5 F 05/21/23 20:14 Pulse 86 05/21/23 20:14 Resp 16 05/21/23 20:14 BP 99/62 05/21/23 20:14 Pulse Ox 97 05/21/23 20:14 O2 Del Method Room Air 05/21/23 14:00 Data NPU 05/14/23 18:48 05/14/23 18:48 A&P Assessment and plan (1) Acute psychosis: Plan 32-year-old female who presents with psychosis in the absence of drug use with clear paranoid delusions and increased anger and agitation. She would likely require continued inpatient hospitalization. ?1. Encourage individual, group and milieu therapy. ?2. Recommend sober living treatment at the highest level of care to which the patient is willing to commit. 3. Therapeutic q-15 minute checks for safety.? 4. Continue depakote ER 500mg in am, and Abilify 20mg daily. 5. Paperwork filed for 21 day hold. 21-day hold hearing today, 05/22/2023 at 1400. Involuntary Hold Information 96 Hour Hold: 96 Hour Involuntary Admission: Yes 96 Hour Hold Ending Date: 05/21/23 Attestations NPU Medical Necessity Statement*: Inpatient hospitalization is medically necessary and deemed to ?be ?the clinically appropriate intervention ?at this time.? Forced medications may be necessary although patient taking previously prescribed medications. The patient?s likely length of stay 7-10 days. Coding Level of Care Code Acute Code for Chg Fwd Diagnoses Acute psychosis F23
[2023-05-22 14:00] VITALS: BP 119/83; PULSE 86; RESP 20; TEMP 36.9; O2SAT 97
--- NOTE | 2023-05-22 14:29 | PC.NURSE ---
Left unit to go to court at 1331, arrived back on unit at 1427. Patient now sitting on bench with [employer] taking her vitals. Appears calm.
[2023-05-22 19:39] VITALS: BP 109/77; PULSE 62; RESP 18; TEMP 37; O2SAT 97
[2023-05-23 06:00] VITALS: BP 103/66; PULSE 96; RESP 17; TEMP 36.7; O2SAT 97
[2023-05-23] MEDS: divalproex ER 500 mg Tablet (24H) PO (09:16)
[2023-05-23] MEDS: ARIPiprazole 10 mg Tablet 20 MG PO (09:16)
--- NOTE | 2023-05-23 10:09 | P.NPUPN_ITS ---
Subjective NPU Subjective: Patient presented today reporting that she is feeling a little better. She continues to have reports of confusion per staff. This is also noteworthy on interview. She denied any side effects to the medication and did acknowledge the role that addiction has played in her psychosis overall. It is unclear what her recent use has been like. She reported periods of sobriety but was reportin g like 20 years of sobriety which is obviously not true. We began discussing the long-acting injectable and agreed we would take things a day at a time and try to get her out as soon as she is having cognitive clarity. Mental Status Exam MSE Comments: This is an overweight well-developed white female in hospital scrubs with limited grooming and eye contact. No abnormal movements except for mild psy chomotor retardation. Mostly cooperative with exam in mild distress. Speech was slightly decreased rate and volume. Mood described as good, affect was odd and subdued. Thought process was disorganized. Thought content: Patient denied suicidal or homicidal ideation, there were no delusions reported but clear paranoid and odd/bizarre delusions present, she did not appear to be attending to internal stimuli. Attention and concentration was impaired and memory was unreliable but none were formally tested. She is alert and oriented to person and place. Insight, judgment and impulse control all appeared impaired. Vitals/I&O/Wt Last Vital Signs Temp 98.0 F 05/23/23 06:00 Pulse 96 05/23/23 06:00 Resp 17 05/23/23 06:00 BP 103/66 05/23/23 06:00 Pulse Ox 97 05/23/23 06:00 O2 Del Method Room Air 05/23/23 06:00 Data NPU 05/14/23 18:48 05/14/23 18:48 A&P Assessment and plan (1) Acute psychosis: Plan 32-year-old female who presents with psychosis in the absence of drug use with clear paranoid delusions and increased anger and agitation. She would likely require continued inpatient hospitalization. ?1. Encourage individual, group and milieu therapy. ?2. Recommend sober living treatment at the highest level of care to which the patient is willing to commit. 3. Therapeutic q-15 minute checks for safety.? 4. Continue depakote ER 500mg in am, and Abilify 20mg daily. 5. Paperwork filed for 21 day hold. 21-day hold hearing 05/22/2023. Patient placed on a 21-day hold. We will begin discussion of the long-acting injectable. Involuntary Hold Information 96 Hour Hold: 96 Hour Involuntary Admission: Yes 96 Hour Hold Ending Date: 05/21/23 Attestations NPU Medical Necessity Statement*: Inpatient hospitalization is medically necessary and deemed to ?be ?the clinically appropriate intervention ?at this time.? Forced medications may be necessary although patient taking previously prescribed medications. The patient?s likely length of stay 6-9 days. Coding Level of Care Code Acute Code for Chg Fwd Diagnoses Acute psychosis F23
[2023-05-23 13:36] VITALS: BP 108/69; PULSE 76; RESP 16; TEMP 37.1; O2SAT 97
[2023-05-23 20:06] VITALS: BP 113/77; PULSE 96; RESP 18; O2SAT 97
[2023-05-24 06:00] VITALS: BP 111/77; PULSE 77; RESP 17; O2SAT 96
[2023-05-24] MEDS: divalproex ER 500 mg Tablet (24H) PO (09:34)
[2023-05-24] MEDS: ARIPiprazole 10 mg Tablet 20 MG PO (09:34)
--- NOTE | 2023-05-24 09:44 | PC.NURSE ---
During assessment, patient denied SI, HI, AVH, depression, and anxiety. Patient stated that she has acute ADD which makes it hard for her to do some ADLs, per patient. Patient took her morning medications with no issues. Patient has been pleasant with this nurse and with fellow patients thus far.
--- NOTE | 2023-05-24 13:53 | P.NPUPN_ITS ---
Subjective NPU Subjective: Patient presented today continuing to have difficulties with disorganization which she herself pointed out today. We began discussing the long-acting injectable and the possibility of initiating it tomorrow. She reports that she is thinking about it. We discussed ultimately being able to administer it under the 21-day hold. Much of her dialogue today was confusing and made no sense with significant paraphasias and odd points being made that really made no point. She discussed wanting to go home with understanding that she is not doing well. We discussed taking it a day at a time and working with her until she has clear improvement. Mental Status Exam MSE Comments: This is an overweight well-developed white female in hospital scrubs with limited grooming and eye contact. No abnormal movements except for mild psychomotor retardation. Mostly cooperative with exam in mild distress. Speech was slightly decreased rate and volume. Mood described as good, affect was odd and subdued. Thought process was disorganized. Thought content: Patient denied suicidal or homicidal ideation, there were no delusions reported but clear paranoid and odd/bizarre delusions present, she did not appear to be attending to internal stimuli. Attention and concentration was impaired and memory was unreliable but none were formally tested. She is alert and oriented to person and place. Insight, judgment and impulse control all appeared impaired. Vitals/I&O/Wt Last Vital Signs Temp 98.7 F 05/23/23 13:36 Pulse 77 05/24/23 06:00 Resp 17 05/24/23 06:00 BP 111/77 05/24/23 06:00 Pulse Ox 96 05/24/23 06:00 O2 Del Method Room Air 05/24/23 06:00 Weight last 48 hrs Weight 69.456 kg Data NPU 05/14/23 18:48 05/14/23 18:48 A&P Assessment and plan (1) Acute psychosis: Plan 32-year-old female who presents with psychosis in the absence of drug use with clear paranoid delusions and increased anger and agitation. She would likely require continued inpatient hospitalization. ?1. Encourage individual, group and milieu therapy. ?2. Recommend sober living treatment at the highest level of care to which the patient is willing to commit. 3. Therapeutic q-15 minute checks for safety.? 4. Continue depakote ER 500mg in am, and Abilify 20mg daily. 5. Paperwork filed for 21 day hold. 21-day hold hearing 05/22/2023. Patient p laced on a 21-day hold. We will begin discussion of the long-acting injectable. Involuntary Hold Information 96 Hour Hold: 96 Hour Involuntary Admission: Yes 96 Hour Hold Ending Date: 05/21/23 Attestations NPU Medical Necessity Statement*: Inpatient hospitalization is medically necessary and deemed to ?be ?the clinically appropriate intervention ?at this time.? Forced medications may be necessary although patient taking previously prescribed medications. The patient?s likely length of stay 6-9 days. Coding Level of Care Code Acute Code for Chg Fwd Diagnoses Acute psychosis F23
[2023-05-24 14:00] VITALS: BP 116/75; PULSE 112; RESP 16; TEMP 37.1; O2SAT 98
[2023-05-24 20:09] VITALS: BP 124/78; PULSE 96; RESP 18; TEMP 36.6; O2SAT 96
[2023-05-24 20:15] VITALS: BP 115/78
[2023-05-25 05:59] VITALS: BP 103/67; PULSE 71; RESP 16; O2SAT 98
[2023-05-25] MEDS: divalproex ER 500 mg Tablet (24H) PO (08:51)
[2023-05-25] MEDS: ARIPiprazole 10 mg Tablet 20 MG PO (08:51)
[2023-05-25] MEDS: nicotine 21 mg Patch 1 PATCH TRANSDERMA (09:18)
--- NOTE | 2023-05-25 11:43 | W.PM.NPUPNS ---
Subjective NPU Subjective: Patient presented today continuing to have difficulties with disorganization still notable on exam and per staff reports. Continued paraphasias and confusing talk. Mental Status Exam MSE Comments: This is an overweight well-developed white female in hospital scrubs with limited grooming and eye contact. No abnormal movements except for mild psychomotor retardation. Mostly cooperative with exam in mild distress. Speech was slightly decreased rate and volume. Mood described as good, affect was odd and subdued. Thought process was disorganized. Thought content: Patient denied suicidal or homicidal ideation, there were no delusions reported but clear paranoid and odd/bizarre delusions present, she did not appear to be attending to internal stimuli. Attention and concentration was impaired and memory was unreliable but none were formally tested. She is alert and oriented to person and place. Insight, judgment and impulse control all appeared impaired. Vitals/I&O/Wt Last Vital Signs Temp 97.9 F 05/24/23 20:09 Pulse 71 05/25/23 05:59 Resp 16 05/25/23 05:59 BP 103/67 05/25/23 05:59 Pulse Ox 98 05/25/23 05:59 O2 Del Method Room Air 05/24/23 20:09 Weight last 48 hrs Weight 69.456 kg Data NPU 05/14/23 18:48 05/14/23 18:48 A&P Assessment and plan (1) Acute psychosis: Plan 32-year-old female who presents with psychosis in the absence of drug use with clear paranoid delusions and increased anger and agitation. She would likely require continued inpatient hospitalization. ?1. Encourage individual, group and milieu therapy. ?2. Recommend sober living treatment at the highest level of care to which the patient is willing to commit. 3. Therapeutic q-15 minute checks for safety.? 4. Continue depakote ER 500mg in am, and Abilify 20mg daily. increase Abilify to 30 mg in next few days and consider switching to invega. 5. Paperwork filed for 21 day hold. 21-day hold hearing 05/22/2023. Patient placed on a 21-day hold. We will begin discussion of the long-acting injectable. Involuntary Hold Information 96 Hour Hold: 96 Hour Involuntary Admission: Yes 96 Hour Hold Ending Date: 05/21/23 Attestations NPU Medical Necessity Statement*: Inpatient hospitalization is medically necessary and deemed to ?be ?the clinically appropriate intervention ?at this time.? Forced medications may be necessary although patient taking previously prescribed medications. The patient?s likely length of stay 6-9 days. Coding Level of Care Code Acute Code for Chg Fwd Diagnoses Acute psychosis F23
[2023-05-25 13:20] VITALS: BP 128/71; PULSE 82; RESP 18; TEMP 36.9; O2SAT 98
[2023-05-25 20:28] VITALS: BP 88/52; PULSE 92; RESP 18; O2SAT 99
[2023-05-26] MEDS: trazodone 50 mg Tablet PO (00:02)
[2023-05-26 06:00] VITALS: BP 107/73; PULSE 65; RESP 17; TEMP 36.6; O2SAT 97
[2023-05-26] MEDS: divalproex ER 500 mg Tablet (24H) PO (08:48)
[2023-05-26] MEDS: ARIPiprazole 10 mg Tablet 20 MG PO (08:49)
[2023-05-26 13:27] VITALS: BP 103/64; PULSE 68; RESP 15; TEMP 36.8; O2SAT 99
--- NOTE | 2023-05-26 16:12 | P.NPUPN_ITS ---
Subjective NPU Subjective: Patient presented today reporting that she is doing okay and suggesting that she was ready to go home. However she did not articulate any reason for that plan with any clarity. She continues to make comments that make no literal sense when he is getting frustrated with her own paraphasias. We discussed the risks, benefits and alternatives of increasing the Abilify to 30 mg but also the p ossible plan for changing medications and she understood and agreed to proceed as is documented in this note. Mental Status Exam MSE Comments: This is an overweight well-developed white female in hospital scrubs with limited grooming and eye contact. No abnormal movements except for mild psychomotor retardation. Mostly cooperative with exam in mild distress. Speech was slightly decreased rate and volume. Mood described as good, affect was odd and subdued. Thought process was disorganized. Thought content: Patient denied suicidal or homicidal ideation, there were no delusions reported but clear paranoid and odd/bizarre delusions present, she did not appear to be attending to internal stimuli. Attention and concentration was impaired and memory was unreliable but none were formally tested. She is alert and oriented to person and place. Insight, judgment and impulse control all appeared impaired. Vitals/I&O/Wt Last Vital Signs Temp 98.2 F 05/26/23 22:00 Pulse 77 05/26/23 22:00 Resp 16 05/26/23 22:00 BP 98/63 05/26/23 22:00 Pulse Ox 99 05/26/23 13:27 O2 Del Method Room Air 05/26/23 22:00 Data NPU 05/14/23 18:48 05/14/23 18:48 A&P Assessment and plan (1) Acute psychosis: Plan 32-year-old female who presents with psychosis in the absence of drug use with clear paranoid delusions and increased anger and agitation. She would likely require continued inpatient hospitalization. ?1. Encourage individual, group and milieu therapy. ?2. Recommend sober living treatment at the highest level of care to which the patient is willing to commit. 3. Therapeutic q-15 minute checks for safety.? 4. Continue depakote ER 500mg in am, and Abilify 20mg daily. increased Abilify to 30 mg today 05/26/2023 and consider switching to invega if more convincing improvement does not notable soon. 5. Paperwork filed for 21 day hold. 21-day hold hearing 05/22/2023. Patient placed on a 21-day hold. We will begin discussion of the long-acting injectable. Involuntary Hold Information 96 Hour Hold: 96 Hour Involuntary Admission: Yes 96 Hour Hold Ending Date: 05/21/23 Attestations NPU Medical Necessity Statement*: Inpatient hospitalization is medically necessary and deemed to ?be ?the clinically appropriate intervention ?at this time.? Forced medications may be necessary although patient taking previously prescribed medications. The patient?s likely length of stay 6-9 days. Coding Level of Care Code Acute Code for Chg Fwd Diagnoses Acute psychosis F23
[2023-05-26] MEDS: ARIPiprazole 10 mg Tablet PO (16:29)
[2023-05-26 22:00] VITALS: BP 98/63; PULSE 77; RESP 16; TEMP 36.8
[2023-05-27] MEDS: acetaminophen 325 mg Tablet 650 MG PO (05:26)
[2023-05-27 05:27] VITALS: BP 108/75; PULSE 92; RESP 16; O2SAT 95
[2023-05-27] MEDS: divalproex ER 500 mg Tablet (24H) PO (07:40)
[2023-05-27] MEDS: ARIPiprazole 30 mg Tablet PO (07:40)
[2023-05-27 14:00] VITALS: BP 105/70; PULSE 73; RESP 17; TEMP 36.8; O2SAT 98
--- NOTE | 2023-05-27 16:42 | P.NPUPN_ITS ---
Subjective NPU Subjective: Patient presented today reporting improvement but not appearing much better. She continues to make comments that make no literal sense when he is getting frustrated with her own paraphasias. We discussed the possibility of needing to change or add medication. Mental Status Exam MSE Comments: This is an overweight well-developed white female in hospital scrubs with limited grooming and eye contact. No abnormal movements except for mild psychomotor retardation. Mostly cooperative with exam in mild distress. Speech was slightly decreased rate and volume. Mood described as good, affect was odd and subdued. Thought process was disorganized. Thought content: Patient denied suicidal or homicidal ideation, there were no delusions reported but clear paranoid and odd/bizarre delusions present, she did not appear to be attending to internal stimuli. Attention and concentration was impaired and memory was unreliable but none were formally tested. She is alert and oriented to person a nd place. Insight, judgment and impulse control all appeared impaired. Vitals/I&O/Wt Last Vital Signs Temp 98.2 F 05/26/23 22:00 Pulse 92 05/27/23 05:27 Resp 16 05/27/23 05:27 BP 108/75 05/27/23 05:27 Pulse Ox 95 05/27/23 05:27 O2 Del Method Room Air 05/27/23 05:27 Data NPU 05/14/23 18:48 05/14/23 18:48 A&P Assessment and plan (1) Acute psychosis: Plan 32-year-old female who presents with psychosis in the absence of drug use with clear paranoid delusions and increased anger and agitation. She would likely require continued inpatient hospitalization. ?1. Encourage individual, group and milieu therapy. ?2. Recommend sober living treatment at the highest level of care to which the patient is willing to commit. 3. Therapeutic q-15 minute checks for safety.? 4. Continue depakote ER 500mg in am, and Abilify 20mg daily. increased Abilify to 30 mg today 05/26/2023 and consider switching to invega if more convincing improvement does not notable soon. 5. Paperwork filed for 21 day hold. 21-day hold hearing 05/22/2023. Patient placed on a 21-day hold. We will begin discussion of the long-acting injectable. Involuntary Hold Information 96 Hour Hold: 96 Hour Involuntary Admission: Yes 96 Hour Hold Ending Date: 05/21/23 Attestations NPU Medical Necessity Statement*: Inpatient hospitalization is medically necessary and deemed to ?be ?the clinically appropriate intervention ?at this time.? Forced medications may be necessary although patient taking previously prescribed medications. The patient?s likely length of stay 6-9 days. Coding Level of Care Code Acute Code for Chg Fwd Diagnoses Acute psychosis F23
[2023-05-27 19:38] VITALS: BP 108/70; PULSE 88; RESP 16; TEMP 36.4; O2SAT 98
[2023-05-28 06:00] VITALS: BP 111/80; PULSE 73; RESP 111; O2SAT 99
[2023-05-28] MEDS: nicotine 21 mg Patch 1 PATCH TRANSDERMA (09:44)
[2023-05-28] MEDS: divalproex ER 500 mg Tablet (24H) PO (09:44)
[2023-05-28] MEDS: ARIPiprazole 30 mg Tablet PO (09:44)
--- NOTE | 2023-05-28 12:16 | P.NPUPN_ITS ---
Subjective NPU Subjective: Patient presented today reporting that she was feeling pretty good. Patient seem less irritable and confused per staff reports and seemed possibly a little better on interview very subtly. She continued to struggle with articulating things in and and tangential way. She continues to discuss issues of self-doubt and self-deprecation. Mental Status Exam MSE Comments: This is an overweight well-developed white female in hospital scrubs with limited grooming and eye contact. No abnormal movements except for mild psychomotor retardation. Mostly cooperative with exam in mild distress. Speech was slightly decreased rate and volume. Mood described as maybe a little better, affect was less odd and less subdued. Thought process was disorganized. Thought content: Patient denied suicidal or homicidal ideation, there were no delusions reported but clear paranoid and odd/bizarre delusions present, she did not appear to be attending to internal stimuli. Attention and concentration was impaired and memory was unreliable but none were formally tested. She is alert and oriented to person and place. Insight, judgment and impulse control all appeared impaired. Vitals/I&O/Wt Last Vital Signs Temp 97.5 F L 05/27/23 19:38 Pulse 73 05/28/23 06:00 Resp 111 H 05/28/23 06:00 BP 111/80 05/28/23 06:00 Pulse Ox 99 05/28/23 06:00 O2 Del Method Room Air 05/28/23 06:00 Data NPU 05/14/23 18:48 05/14/23 18:48 A&P Assessment and plan (1) Acute psychosis: Plan 32-year-old female who presents with psychosis in the absence of drug use with clear paranoid delusions and increased anger and agitation. She would likely r equire continued inpatient hospitalization. ?1. Encourage individual, group and milieu therapy. ?2. Recommend sober living treatment at the highest level of care to which the patient is willing to commit. 3. Therapeutic q-15 minute checks for safety.? 4. Continue depakote ER 500mg in am, and Abilify 20mg daily. increased Abilify to 30 mg today 05/26/2023 and consider switching to invega if more convincing improvement does not notable soon. 5. Paperwork filed for 21 day hold. 21-day hold hearing 05/22/2023. Patient placed on a 21-day hold. We will begin discussion of the long-acting injectable. Involuntary Hold Information 2 96 Hour Hold: 96 Hour Involuntary Admission: Yes 96 Hour Hold Ending Date: 05/21/23 Attestations NPU Medical Necessity Statement*: Inpatient hospitalization is medically necessary and deemed to ?be ?the clinically appropriate intervention ?at this time.? Forced medications may be necessary although patient taking previously prescribed medications. The patient?s likely length of stay 5-8 days. Coding Level of Care Code Acute Code for Chg Fwd Diagnoses Acute psychosis F23
[2023-05-28 14:00] VITALS: BP 101/65; PULSE 61; RESP 16; TEMP 36.9; O2SAT 98
[2023-05-28 19:44] VITALS: BP 96/59; PULSE 102; RESP 16; TEMP 36.8; O2SAT 96
[2023-05-29 06:00] VITALS: BP 98/67; PULSE 107; RESP 16; TEMP 36.6; O2SAT 93
[2023-05-29] MEDS: divalproex ER 500 mg Tablet (24H) PO (09:40)
[2023-05-29] MEDS: ARIPiprazole 30 mg Tablet PO (09:41)
--- NOTE | 2023-05-29 10:29 | W.PM.NPUPNS ---
Subjective NPU Subjective: Patient presented today reporting that things are going okay with him getting on a tangent about being able to leave and wondering why she cannot just walk out the door. We had a conversation to really try to help her understand the hold and she kept saying that the police brought her there and she should only be allowed to be held for a certain period of time. We discussed the 21-day hold process and concerns about her continued psychosis and even the possibility of switching over to Invega if she does not have continued improvement. Mental Status Exam MSE Comments: This is an overweight well-developed white female in hospital scrubs with limited grooming and eye contact. No abnormal movements except for mild psychomotor retardation. Mostly cooperative with exam in mild distress. Speech was slightly decreased rate and volume. Mood described as maybe a little better, affect was less odd and less subdued. Thought process was disorganized. Thought content: Patient denied suicidal or homicidal ideation, there were no delusions reported but clear paranoid and odd/bizarre delusions present, she did not appear to be attending to internal stimuli. Attention and concentration was impaired and memory was unreliable but none were formally tested. She is alert and oriented to person and place. Insight, judgment and impulse control all appeared impaired. Vitals/I&O/Wt Last Vital Signs Temp 97.8 F 05/29/23 06:00 Pulse 107 H 05/29/23 06:00 Resp 16 05/29/23 06:00 BP 98/67 05/29/23 06:00 Pulse Ox 93 05/29/23 06:00 O2 Del Method Room Air 05/29/23 06:00 Data NPU 05/14/23 18:48 05/14/23 18:48 A&P Assessment and plan (1) Acute psychosis: Plan 32-year-old female who presents with psychosis in the absence of drug use with clear paranoid delusions and increased anger and agitation. She would likely require continued inpatient hospitalization. ?1. Encourage individual, group and milieu therapy. ?2. Recommend sober living treatment at the highest level of care to which the patient is willing to commit. 3. Therapeutic q-15 minute checks for safety.? 4. Continue depakote ER 500mg in am, and Abilify 20mg daily. increased Abilify to 30 mg today 05/26/2023 and consider switching to invega if more convincing improvement does not notable soon. 5. Paperwork filed for 21 day hold. 21-day hold hearing 05/22/2023. Patient placed on a 21-day hold. We will begin discussion of the long-acting injectable. Involuntary Hold Information 96 Hour Hold: 96 Hour Involuntary Admission: Yes 96 Hour Hold Ending Date: 05/21/23 Attestations NPU Medical Necessity Statement*: Inpatient hospitalization is medically necessary and deemed to ?be ?the clinically appropriate intervention ?at this time.? Forced medications may be necessary although patient taking previously prescribed medications. The patient?s likely length of stay 5-8 days. Coding Level of Care Code Acute Code for Chg Fwd Diagnoses Acute psychosis F23
[2023-05-29 13:28] VITALS: BP 110/72; PULSE 99; RESP 18; TEMP 36.6; O2SAT 99
[2023-05-29 20:05] VITALS: BP 100/66; PULSE 80; RESP 16; TEMP 36.8; O2SAT 98
[2023-05-30 06:00] VITALS: BP 117/77; PULSE 82; RESP 16; TEMP 36.4; O2SAT 96
[2023-05-30] MEDS: ARIPiprazole 30 mg Tablet PO (08:19)
[2023-05-30] MEDS: divalproex ER 500 mg Tablet (24H) PO (08:19)
[2023-05-30] MEDS: nicotine 21 mg Patch 1 PATCH TRANSDERMA (08:19)
--- NOTE | 2023-05-30 09:03 | P.NPUPN_ITS ---
Subjective NPU Subjective: Patient presented today continuing to be disorganized per reports and direct evaluation. She continues to be focused on possible discharge, but her ability to participate in a conversation about the improvements necessary for discharge to the viable option is still absent. We discussed the risks, benefits and alternatives of increasing arousability and in the morning and she understood an d agreed to proceed as is documented in this note. Mental Status Exam MSE Comments: This is an overweight well-developed white female in hospital scrubs with limited grooming and eye contact. No abnormal movements except for mild psychomotor retardation. Mostly cooperative with exam in mild distress. Speech was slightly decreased rate and volume. Mood described as maybe a little better, affect was less odd and less subdued. Thought process was disorganized. Thought content: Patient denied suicidal or homicidal ideation, there were no delusions reported but clear paranoid and odd/bizarre delusions present, she did not appear to be attending to internal stimuli. Attention and concentration was impaired and memory was unreliable but none were formally tested. She is alert and oriented to person and place. Insight, judgment and impulse control all appeared impaired. Vitals/I&O/Wt Last Vital Signs Temp 97.5 F L 05/30/23 06:00 Pulse 82 05/30/23 06:00 Resp 16 05/30/23 06:00 BP 117/77 05/30/23 06:00 Pulse Ox 96 05/30/23 06:00 O2 Del Method Room Air 05/29/23 13:28 Data NPU 05/14/23 18:48 05/14/23 18:48 A&P Assessment and plan (1) Acute psychosis: Plan 32-year-old female who presents with psychosis in the absence of drug use with clear paranoid delusions and increased anger and agitation. She would likely require continued inpatient hospitalization. ?1. Encourage individual, group and milieu therapy. ?2. Recommend sober living treatment at the highest level of care to which the patient is willing to commit. 3. Therapeutic q-15 minute checks for safety.? 4. Continue depakote ER 500mg in am, and Abilify 20mg daily. increased Abilify to 30 mg today 05/26/2023 and consider switching to invega if more convincing improvement does not notable soon. Increase Depakote ER to 1000 mg and still consider Invega. 5. Paperwork filed for 21 day hold. 21-day hold hearing 05/22/2023. Patient placed on a 21-day hold. We will begin discussion of the long-acting injectable. Involuntary Hold Information 96 Hour Hold: 96 Hour Involuntary Admission: Yes 96 Hour Hold Ending Date: 05/21/23 Attestations NPU Medical Necessity Statement*: Inpatient hospitalization is medically necessary and deemed to ?be ?the clinically appropriate intervention ?at this time.? Forced medications may be necessary although patient taking previously prescribed medications. The patient?s likely length of stay 4-7 days. Coding Level of Care Code Acute Code for Chg Fwd Diagnoses Acute psychosis F23
[2023-05-30 14:00] VITALS: BP 100/69; PULSE 92; RESP 18; TEMP 36.8; O2SAT 96
[2023-05-30 19:53] VITALS: BP 100/68; PULSE 110; RESP 16; TEMP 36.8; O2SAT 99
[2023-05-31 06:00] VITALS: BP 102/71; PULSE 89; RESP 16; TEMP 36.5; O2SAT 98
[2023-05-31] MEDS: divalproex ER 500 mg Tablet (24H) 1000 MG PO (09:20)
[2023-05-31] MEDS: nicotine 21 mg Patch 1 PATCH TRANSDERMA (09:21)
[2023-05-31] MEDS: ARIPiprazole 30 mg Tablet PO (09:21)
--- NOTE | 2023-05-31 09:42 | P.NPUPN_ITS ---
Subjective NPU Subjective: Patient presented today reporting that she is a little tired. We discussed the possibility of changing her Depakote to evening if she was having trouble adjusting to it. At this point however she denied any desire to change the medication. She appeared to be isolating to some degree. We continue to discuss considering Invega. Mental Status Exam MSE Comments: This is an overweight well-developed white female in hospital scrubs with limited grooming and eye contact. No abnormal movements except for mild psychomotor retardation. Mostly cooperative with exam in mild distress. Speech was slightly decreased rate and volume. Mood described as maybe a little better, affect was less odd and less subdued. Thought process was disorganized. Thought content: Patient denied suicidal or homicidal ideation, there were no delusions reported but clear paranoid and odd/bizarre delusions present, she did not appear to be attending to internal stimuli. Attention and concentration was impaired and memory was unreliable but none were formally tested. She is alert and oriented to person and place. Insight, judgment and impulse control all appeared impaired. Vitals/I&O/Wt Last Vital Signs Temp 98.3 F 05/31/23 20:00 Pulse 99 05/31/23 20:00 Resp 16 05/31/23 20:00 BP 110/73 05/31/23 20:00 Pulse Ox 96 05/31/23 20:00 O2 Del Method Room Air 05/31/23 20:00 Weight last 48 hrs Weight 73.301 kg Data NPU 05/14/23 18:48 05/14/23 18:48 A&P Assessment and plan (1) Acute psychosis: Plan 32-year-old female who presents with psychosis in the absence of drug use with clear paranoid delusions and increased anger and agitation. She would likely require continued inpatient hospitalization. ?1. Encourage individual, group and milieu therapy. ?2. Recommend sober living treatment at the highest level of care to which the patient is willing to commit. 3. Therapeutic q-15 minute checks for safety.? 4. Continue depakote ER 500mg in am, and Abilify 20mg daily. increased Abilify to 30 mg today 05/26/2023 and consider switching to invega if more convincing improvement does not notable soon. Increased Depakote ER to 1000 mg and still consider Invega. 5. Paperwork filed for 21 day hold. 21-day hold hearing 05/22/2023. Patient placed on a 21-day hold. We will begin discussion of the long-acting injectable. Involuntary Hold Information 96 Hour Hold: 96 Hour Involuntary Admission: Yes 96 Hour Hold Ending Date: 05/21/23 Attestations NPU Medical Necessity Statement*: Inpatient hospitalization is medically necessary and deemed to ?be ?the clin ically appropriate intervention ?at this time.? Forced medications may be necessary although patient taking previously prescribed medications. The patient?s likely length of stay 4-7 days. Coding Level of Care Code Acute Code for Chg Fwd Diagnoses Acute psychosis F23
[2023-05-31 14:09] VITALS: BP 99/66; PULSE 88; RESP 16; TEMP 36.7; O2SAT 97
[2023-05-31 20:00] VITALS: BP 110/73; PULSE 99; RESP 16; TEMP 36.8; O2SAT 96
[2023-06-01 06:00] VITALS: BP 116/64; PULSE 86; RESP 16; TEMP 36.4; O2SAT 97
[2023-06-01] MEDS: divalproex ER 500 mg Tablet (24H) 1000 MG PO (08:25)
[2023-06-01] MEDS: ARIPiprazole 30 mg Tablet PO (08:25)
[2023-06-01 13:14] VITALS: BP 99/66; PULSE 88; RESP 16; TEMP 36.7; O2SAT 99
--- NOTE | 2023-06-01 14:24 | W.PM.NPUPNS ---
Subjective NPU Subjective: Patient presented today reporting that she is feeling well overall. She did not have any concerns expressed today about leaving she seemed to understand a little bit more the need for her to stay to get cognitive clarity. She still had very limited spontaneity with her speech and continued to be quite isolative. Staff reports of improvement on the higher dose of Depakote. Mental Status Exam MSE Comments: This is an overweight well-developed white female in hospital scrubs with limited grooming and eye contact. No abnormal movements except for mild psychomotor retardation. Mostly cooperative with exam in mild distress. Speech was slightly decreased rate and volume. Mood described as maybe a little better, affect was less odd and less subdued. Thought process was disorganized. Thought content: Patient denied suicidal or homicidal ideation, there were no delusions reported but clear paranoid and odd/bizarre delusions present, she did not appear to be attending to internal stimuli. Attention and concentration was impaired and memory was unreliable but none were formally tested. She is alert and oriented to person and place. Insight, judgment and impulse control all appeared impaired. Vitals/I&O/Wt Last Vital Signs Temp 98.0 F 06/01/23 13:14 Pulse 88 06/01/23 13:14 Resp 16 06/01/23 13:14 BP 99/66 06/01/23 13:14 Pulse Ox 99 06/01/23 13:14 O2 Del Method Room Air 06/01/23 13:14 05/31/23 06/01/23 06/01/23 22:59 06:59 14:59 Intake Total 240 / 360 Balance 240 / 360 Weight last 48 hrs Weight 73.301 kg Data NPU 05/14/23 18:48 05/14/23 18:48 A&P Assessment and plan (1) Acute psychosis: Plan 32-year-old female who presents with psychosis in the absence of drug use with clear paranoid delusions and increased anger and agitation. She would likely require continued inpatient hospitalization. ?1. Encourage individual, group and milieu therapy. ?2. Recommend sober living treatment at the highest level of care to which the patient is willing to commit. 3. Therapeutic q-15 minute checks for safety.? 4. Continue depakote ER 500mg in am, and Abilify 20mg daily. increased Abilify to 30 mg today 05/26/2023 and consider switching to invega if more convincing improvement does not notable soon. Increased Depakote ER to 1000 mg and still consider Invega. 5. Paperwork filed for 21 day hold. 21-day hold hearing 05/22/2023. Patient placed on a 21-day hold. We will begin discussion of the long-acting injectable. Involuntary Hold Information 96 Hour Hold: 96 Hour Involuntary Admission: Yes 96 Hour Hold Ending Date: 05/21/23 Attestations NPU Medical Necessity Statement*: Inpatient hospitalization is medically necessary and deemed to ?be ?the clinically appropriate intervention ?at this time.? Forced medications may be necessary although patient taking previously prescribed medications. The patient?s likely length of stay 4-7 days. Coding Level of Care Code Acute Code for Chg Fwd Diagnoses Acute psychosis F23
[2023-06-01 19:56] VITALS: BP 96/90; PULSE 61; RESP 13; TEMP 36.8; O2SAT 97
[2023-06-02 06:40] VITALS: BP 98/67; PULSE 105; RESP 18; TEMP 36.9; O2SAT 95
[2023-06-02] MEDS: ARIPiprazole 30 mg Tablet PO (11:15)
[2023-06-02] MEDS: divalproex ER 500 mg Tablet (24H) 1000 MG PO (11:15)
--- NOTE | 2023-06-02 13:01 | W.PM.NPUPNS ---
Subjective NPU Subjective: Patient presented today seemingly returning to the subject matter of discharge understanding why that was not happy. Demonstrating limited to no insight into her current dysfunction. We discussed being concerned that the Abilify has had much less impact at 30 mg that we would need or desire. We discussed the risks, benefits and alternatives of starting Invega 3 mg today and titrate to effect and likely begin discontinuing the Abilify and she understood agreed proceed as is documented in this note. Mental Status Exam MSE Comments: This is an overweight well-developed white female in hospital scrubs with limited grooming and eye contact. No abnormal movements except for mild psychomotor retardation. Mostly cooperative with exam in mild distress. Speech was slightly decreased rate and volume. Mood described as maybe a little better, affect was less odd and less subdued. Thought process was disorganized. Thought content: Patient denied suicidal or homicidal ideation, there were no delusions reported but clear paranoid and odd/bizarre delusions present, she did not appear to be attending to internal stimuli. Attention and concentration was impaired and memory was unreliable but none were formally tested. She is alert and oriented to person and place. Insight, judgment and impulse control all appeared impaired. Vitals/I&O/Wt Last Vital Signs Temp 98.4 F 06/02/23 06:40 Pulse 105 H 06/02/23 06:40 Resp 18 06/02/23 06:40 BP 98/67 06/02/23 06:40 Pulse Ox 95 06/02/23 06:40 O2 Del Method Room Air 06/01/23 19:56 Data NPU 05/14/23 18:48 05/14/23 18:48 A&P Assessment and plan (1) Acute psychosis: Plan 32-year-old female who presents with psychosis in the absence of drug use with clear paranoid delusions and increased anger and agitation. She would likely require continued inpatient hospitalization. ?1. Encourage individual, group and milieu therapy. ?2. Recommend sober living treatment at the highest level of care to which the patient is willing to commit. 3. Therapeutic q-15 minute checks for safety.? 4. Continue depakote ER 500mg in am, and Abilify 20mg daily. increased Abilify to 30 mg today 05/26/2023 and consider switching to invega if more convincing improvement does not notable soon. Increased Depakote ER to 1000 mg and still consider Invega. Start Invega 3 mg daily and plan to increase and likely discontinue Abilify. 5. Paperwork filed for 21 day hold. 21-day hold hearing 05/22/2023. Patient placed on a 21-day hold. We will begin discussion of the long-acting injectable. Involuntary Hold Information 96 Hour Hold: 96 Hour Involuntary Admission: Yes 96 Hour Hold Ending Date: 05/21/23 Attestations NPU Medical Necessity Statement*: Inpatient hospitalization is medically necessary and deemed to ?be ?the clinically appropriate intervention ?at this time.? Forced medications may be necessary although patient taking previously prescribed medications. The patient?s likely length of stay 4-7 days. Coding Level of Care Code Acute Code for Chg Fwd Diagnoses Acute psychosis F23
[2023-06-02 14:14] VITALS: BP 97/69; PULSE 91; RESP 16; TEMP 36.6; O2SAT 96
[2023-06-02] MEDS: paliperidone ER 3 mg Tablet PO (20:11)
[2023-06-02 20:28] VITALS: BP 108/64; PULSE 101; RESP 15; TEMP 36.4; O2SAT 98
[2023-06-03 06:00] VITALS: BP 98/63; PULSE 96; RESP 16; TEMP 36.8; O2SAT 93
[2023-06-03] MEDS: nicotine 4 mg lozenge MUCOUS MEM ×3 (06:44→12:18)
[2023-06-03] MEDS: ARIPiprazole 30 mg Tablet PO (08:43)
[2023-06-03] MEDS: divalproex ER 500 mg Tablet (24H) 1000 MG PO (08:43)
--- NOTE | 2023-06-03 09:49 | P.NPUPN_ITS ---
Subjective NPU Subjective: Patient presented today reporting that she feels better with the starting of Invega. She reports she slept better last night and feels like she has had a fog lifted a little bit. We discussed the risk benefits and alternatives of increasing Invega to 6 mg p.o. daily and decreasing the Abilify back to 20 mg p.o. daily and she understood and agreed to proceed as is documented in this note. We discussed likely needing the Abilify for possible outpatient taper given possibility of synergistic effect. Mental Status Exam MSE Comments: This is an overweight well-developed white female in hospital scrubs with limited grooming and eye contact. No abnormal movements except for mild psychomotor retardation. Mostly cooperative with exam in mild distress. Speech was slightly decreased rate and volume. Mood described as a little better, affect was less odd and less subdued. Thought process was disorganized, but appearing to show improvement. Thought content: Patient denied suicidal or h omicidal ideation, there were no delusions reported but apparent lessening in her paranoid and odd/bizarre delusions noted, she did not appear to be attending to internal stimuli. Attention and concentration was improving and memory was more reliable but none were formally tested. She is alert and oriented to person and place. Insight, judgment and impulse control all appeared impaired, but improving. Vitals/I&O/Wt Last Vital Signs Temp 98.3 F 06/03/23 06:00 Pulse 96 06/03/23 06:00 Resp 16 06/03/23 06:00 BP 98/63 06/03/23 06:00 Pulse Ox 93 06/03/23 06:00 O2 Del Method Room Air 06/02/23 14:14 06/02/23 06/03/23 06/03/23 22:59 06:59 14:59 Intake Total 0 / 0 Balance 0 / 0 Data NPU 05/14/23 18:48 05/14/23 18:48 A&P Assessment and plan (1) Acute psychosis: Plan 32-year-old female who presents with psychosis in the absence of drug use with clear paranoid delusions and increased anger and agitation. She would likely require continued inpatient hospitalization. ?1. Encourage individual, group and milieu therapy. ?2. Recommend sober living treatment at the highest level of care to which the patient is willing to commit. 3. Therapeutic q-15 minute checks for safety.? 4. Continue depakote ER 500mg in am, and Abilify 20mg daily. increased Abilify to 30 mg 05/26/2023. Increased Depakote ER to 1000 mg and still consider Invega. Start Invega 3 mg daily and plan to increase and likely discontinue Abilify. Increase Invega to 6 mg p.o. daily and decrease Abilify back to 20 mg p.o. daily. If continued improvement will consider the Invega injection. 5. 21-day hold hearing 05/22/2023. Patient placed on a 21-day hold. We will begin discussion of the long-acting injectable. Involuntary Hold Information 96 Hour Hold: 96 Hour Involuntary Admission: Yes 96 Hour Hold Ending Date: 05/21/23 Attestations NPU Medical Necessity Statement*: Inpatient hospitalization is medically necessary and deemed to ?be ?the clinically appropriate intervention ?at this time.? Forced medications may be necessary although patient taking previously prescribed medications. The patient?s likely length of stay 3-6 days. Coding Level of Care Code Acute Code for Chg Fwd Diagnoses Acute psychosis F23
[2023-06-03 13:39] VITALS: BP 116/81; PULSE 116; RESP 17; TEMP 36.9; O2SAT 99
[2023-06-03 20:22] VITALS: BP 114/71; PULSE 88; RESP 16; TEMP 36.5; O2SAT 100
[2023-06-04 06:00] VITALS: BP 98/71; PULSE 87; RESP 17; O2SAT 97
[2023-06-04] MEDS: divalproex ER 500 mg Tablet (24H) 1000 MG PO (08:38)
[2023-06-04] MEDS: ARIPiprazole 10 mg Tablet 20 MG PO (08:38)
[2023-06-04] MEDS: nicotine 4 mg lozenge MUCOUS MEM ×3 (08:39→14:00)
--- NOTE | 2023-06-04 11:16 | P.NPUPN_ITS ---
Subjective NPU Subjective: Patient presented today reporting that she was somewhat confused about the medications last night. After discussion of the plan of cross tapering/titrating the Abilify and Invega given her improvement noted on the Invega she did take her previous evening's dose of Invega. Otherwise she denied any new issues. Mental Status Exam MSE Comments: This is an overweight well-developed white female in hospital scrubs with limited grooming and eye contact. No abnormal movements except for mild psyc homotor retardation. Mostly cooperative with exam in mild distress. Speech was slightly decreased rate and volume. Mood described as a little better, affect was less odd and less subdued. Thought process was disorganized, but appearing to show improvement. Thought content: Patient denied suicidal or homicidal ideation, there were no delusions reported but apparent lessening in her paranoid and odd/bizarre delusions noted, she did not appear to be attending to internal stimuli. Attention and concentration was improving and memory was more reliable but none were formally tested. She is alert and oriented to person and place. Insight, judgment and impulse control all appeared impaired, but improving. Vitals/I&O/Wt Last Vital Signs Temp 97.7 F 06/03/23 20:22 Pulse 87 06/04/23 06:00 Resp 17 06/04/23 06:00 BP 98/71 06/04/23 06:00 Pulse Ox 97 06/04/23 06:00 O2 Del Method Room Air 06/04/23 06:00 Data NPU 05/14/23 18:48 05/14/23 18:48 A&P Assessment and plan (1) Acute psychosis: Plan 32-year-old female who presents with psychosis in the absence of drug use with clear paranoid delusions and increased anger and agitation. She would likely require continued inpatient hospitalization. ?1. Encourage individual, group and milieu therapy. ?2. Recommend sober living treatment at the highest level of care to which the patient is willing to commit. 3. Therapeutic q-15 minute checks for safety.? 4. Continue depakote ER 500mg in am, and Abilify 20mg daily. increased Abilify to 30 mg 05/26/2023. Increased Depakote ER to 1000 mg and still consider Invega. Start Invega 3 mg daily and plan to increase and likely discontinue Abilify. Increase Invega to 6 mg p.o. daily and decrease Abilify back to 20 mg p.o. daily. If continued improvement will consider the Invega injection. Continue to taper Abilify if continued improvement noted. 5. 21-day hold hearing 05/22/2023. Patient placed on a 21-day hold. We will begin discussion of the long-acting injectable. Involuntary Hold Information 96 Hour Hold: 96 Hour Involuntary Admission: Yes 96 Hour Hold Ending Date: 05/21/23 Attestations NPU Medical Necessity Statement*: Inpatient hospitalization is medically necessary and deemed to ?be ?the clinically appropriate intervention ?at this time.? Forced medications may be necessary although patient taking previously prescribed medications. The patient?s likely length of stay 3-6 days. Coding Level of Care Code Acute Code for Chg Fwd Diagnoses Acute psychosis F23
[2023-06-04] MEDS: paliperidone ER 6 mg Tablet PO ×2 (11:25→20:18)
[2023-06-04 14:00] VITALS: BP 106/72; PULSE 90; RESP 16; TEMP 36.6; O2SAT 98
[2023-06-04 20:09] VITALS: BP 93/62; PULSE 94; RESP 15; TEMP 36.5; O2SAT 96
[2023-06-05 06:00] VITALS: BP 123/90; PULSE 111; RESP 16; O2SAT 98
[2023-06-05] MEDS: nicotine 4 mg lozenge MUCOUS MEM ×5 (06:10→20:26)
[2023-06-05] MEDS: ARIPiprazole 10 mg Tablet 20 MG PO (08:28)
[2023-06-05] MEDS: divalproex ER 500 mg Tablet (24H) 1000 MG PO (08:28)
[2023-06-05 14:00] VITALS: BP 104/73; PULSE 92; RESP 18; TEMP 37; O2SAT 97
--- NOTE | 2023-06-05 15:06 | W.PM.NPUPNS ---
Subjective NPU Subjective: Patient presented today reporting that the medication is helping. We discussed Dr. Aparicio returning. We discussed possibly decreasing the Abilify to 15 mg soon. Mental Status Exam MSE Comments: This is an overweight well-developed white female in hospital scrubs with limited grooming and eye contact. No abnormal movements except for mild psychomotor retardation. Mostly cooperative with exam in mild distress. Speech was slightly decreased rate and volume. Mood described as a little better, affect was less odd and less subdued. Thought process was disorganized, but appearing to show improvement. Thought content: Patient denied suicidal or homicidal ideation, there were no delusions reported but apparent lessening in her paranoid and odd/bizarre delusions noted, she did not appear to be attending to internal stimuli. Attention and concentration was improving and memory was more reliable but none were formally tested. She is alert and oriented to person and place. Insight, judgment and impulse control all appeared impaired, but improving. Vitals/I&O/Wt Last Vital Signs Temp 98.6 F 06/05/23 14:00 Pulse 92 06/05/23 14:00 Resp 18 06/05/23 14:00 BP 104/73 06/05/23 14:00 Pulse Ox 97 06/05/23 14:00 O2 Del Method Room Air 06/05/23 14:00 06/05/23 06/05/23 06/05/23 06:59 14:59 22:59 Intake Total 240 / 240 Balance 240 / 240 Data NPU 05/14/23 18:48 05/14/23 18:48 A&P Assessment and plan (1) Acute psychosis: Plan 32-year-old female who presents with psychosis in the absence of drug use with clear paranoid delusions and increased anger and agitation. She would likely require continued inpatient hospitalization. ?1. Encourage individual, group and milieu therapy. ?2. Recommend sober living treatment at the highest level of care to which the patient is willing to commit. 3. Therapeutic q-15 minute checks for safety.? 4. Continue depakote ER 500mg in am, and Abilify 20mg daily. increased Abilify to 30 mg 05/26/2023. Increased Depakote ER to 1000 mg and still consider Invega. Start Invega 3 mg daily and plan to increase and likely discontinue Abilify. Increased Invega to 6 mg p.o. daily and decreased Abilify back to 20 mg p.o. daily. If continued improvement will consider the Invega injection. Continue to taper Abilify if continued improvement noted. 5. 21-day hold hearing 05/22/2023. Patient placed on a 21-day hold. We will begin discussion of the long-acting injectable. Involuntary Hold Information 96 Hour Hold: 96 Hour Involuntary Admission: Yes 96 Hour Hold Ending Date: 05/21/23 Attestations NPU Medical Necessity Statement*: Inpatient hospitalization is medically necessary and deemed to ?be ?the clinically appropriate intervention ?at this time.? Forced medications may be necessary although patient taking previously prescribed medications. The patient?s likely length of stay 3-6 days. Coding Level of Care Code Acute Code for Chg Fwd Diagnoses Acute psychosis F23
[2023-06-05 19:50] VITALS: BP 92/55; PULSE 88; RESP 16; TEMP 36.7; O2SAT 95
[2023-06-05] MEDS: paliperidone ER 6 mg Tablet PO (20:26)
[2023-06-06] MEDS: nicotine 4 mg lozenge MUCOUS MEM ×5 (02:08→14:12)
[2023-06-06 06:00] VITALS: BP 120/77; PULSE 107; RESP 16; TEMP 36.4; O2SAT 99
[2023-06-06] MEDS: ARIPiprazole 10 mg Tablet 20 MG PO (08:18)
[2023-06-06] MEDS: divalproex ER 500 mg Tablet (24H) 1000 MG PO (08:18)
[2023-06-06] MEDS: hyDROXYzine 25 mg Capsule 50 MG PO (12:46)
[2023-06-06 13:23] VITALS: BP 141/79; PULSE 122; RESP 19; O2SAT 99
--- NOTE | 2023-06-06 17:35 | W.PM.NPUPNS ---
Subjective NPU Subjective: 32-year-old white female with a past history of methamphetamine abuse and psychosis admitted with psychotic symptoms in the absence of methamphetamine use. She had been tolerant with her medications and stated that she was feeling better. Despite this, she had reported feeling anxious stating that there was something going on here that had nothing to do with her and that she needed to leave here today. She was unable to elaborate regarding why she needed to leave here today. She had been more isolative in her room. She reported no side effects from her medication regimen. She had reported that she had been sleeping better on Invega. She stated that she was trying to get herself together and find a new place to live when she left here. Mental Status Exam MSE Comments: This is an overweight well-developed white female in hospital scrubs with limited grooming and eye contact. No abnormal movements except for mild psychomotor retardation. She was somewhat cooperative with exam in moderate distress. Speech was normal in rate rhythm and volume. Mood described as better. Affect remained subdued. Her thought process was linear but superficial. Thought content: Patient denied suicidal or homicidal ideation. She did appear to be more paranoid today. She did not appear to be attending to internal stimuli. Attention and concentration was improving and memory was more reliable but none were formally tested. She is alert and oriented to person and place. Insight, judgment and impulse control all appeared impaired, but improving. Vitals/I&O/Wt Last Vital Signs Temp 97.6 F 06/06/23 06:00 Pulse 122 H 06/06/23 13:23 Resp 19 H 06/06/23 13:23 BP 141/79 06/06/23 13:23 Pulse Ox 99 06/06/23 13:23 O2 Del Method Room Air 06/06/23 06:00 Data NPU 05/14/23 18:48 05/14/23 18:48 A&P Assessment and plan (1) Acute psychosis: Plan 32-year-old female who presents with psychosis in the absence of drug use with clear paranoid delusions and increased anger and agitation. She would likely require continued inpatient hospitalization. ?1. Encourage individual, group and milieu therapy. ?2. Recommend sober living treatment at the highest level of care to which the patient is willing to commit. 3. Therapeutic q-15 minute checks for safety.? 4. Continue Depakote 1000mg daily, reduce abilify to 15mg daily, continue invega 6mg at night with likely increase in invega planned. 5. 21-day hold hearing 05/22/2023. Patient placed on a 21-day hold. Involuntary Hold Information 96 Hour Hold: 96 Hour Involuntary Admission: Yes 96 Hour Hold Ending Date: 05/21/23 Attestations NPU Medical Necessity Statement*: Inpatient hospitalization is medically necessary and deemed to ?be ?the clinically appropriate intervention ?at this time.? Forced medications may be necessary although patient taking previously prescribed medications. The patient?s likely length of stay 3-6 days. Coding Level of Care Code Acute Code for Chg Fwd Diagnoses Acute psychosis F23
[2023-06-06 20:27] VITALS: BP 100/68; PULSE 118; RESP 16; TEMP 37.2; O2SAT 97
[2023-06-06] MEDS: paliperidone ER 6 mg Tablet PO (21:20)
[2023-06-07 06:00] VITALS: BP 105/71; PULSE 106; RESP 16; TEMP 36.3; O2SAT 97
[2023-06-07] MEDS: nicotine 4 mg lozenge MUCOUS MEM ×3 (06:26→15:00)
[2023-06-07] MEDS: divalproex ER 500 mg Tablet (24H) 1000 MG PO (09:59)
[2023-06-07] MEDS: ARIPiprazole 10 mg Tablet 15 MG PO (09:59)
--- NOTE | 2023-06-07 12:24 | P.NPUPN_ITS ---
Subjective NPU Subjective: 32-year-old white female with a past history of methamphetamine abuse and psychosis admitted with psychotic symptoms in the absence of methamphetamine use. The patient had been somewhat isolative on the milieu. She had reported no changes as she continued to report that she felt confused by something going on here but was unable to describe what the problem was here. She had reported that she had come to the hospital because of an argument with her family but was unable to provide any further details. Mental Status Exam MSE Comments: This is an overweight well-developed white female in hospital scrubs with limited grooming and fleeting eye contact. No abnormal movements except for m ild psychomotor retardation. She was somewhat cooperative with exam in moderate distress. Speech was normal in volume but decreased in spontaneity. Mood described as okay. Affect remained subdued and mood incongruent. Her thought process was linear but superficial. Thought content: Patient denied suicidal or homicidal ideation. She did appear guarded still. She did not appear to be attending to internal stimuli. Attention and concentration was improving and memory was more reliable but none were formally tested. She is alert and oriented to person and place. Insight was poor. Judgment was poor. Impulse control appeared poor. Vitals/I&O/Wt Last Vital Signs Temp 97.4 F L 06/07/23 06:00 Pulse 106 H 06/07/23 06:00 Resp 16 06/07/23 06:00 BP 105/71 06/07/23 06:00 Pulse Ox 97 06/07/23 06:00 O2 Del Method Room Air 06/06/23 06:00 Weight last 48 hrs Weight 73.028 kg Data NPU 05/14/23 18:48 05/14/23 18:48 A&P Assessment and plan (1) Acute psychosis: Plan 32-year-old female who presents with psychosis in the absence of drug use with clear paranoid delusions and increased anger and agitation. She would likely require continued inpatient hospitalization. ?1. Encourage individual, group and milieu therapy. ?2. Recommend sober living treatment at the highest level of care to which the patient is willing to commit. 3. Therapeutic q-15 minute checks for safety.? 4. Continue Depakote 1000mg daily, reduce abilify to 15mg daily, increase Invega to 9 mg at night; reduce Abilify to 10 mg daily. 5. 21-day hold hearing 05/22/2023. Patient placed on a 21-day hold. Involuntary Hold Information 96 Hour Hold: 96 Hour Involuntary Admission: Yes 96 Hour Hold Ending Date: 05/21/23 Attestations NPU Medical Necessity Statement*: Inpatient hospitalization is medically necessary and deemed to ?be ?the c linically appropriate intervention ?at this time.? Forced medications may be necessary although patient taking previously prescribed medications. The patient?s likely length of stay 5-7 days. Coding Level of Care Code Acute Code for Chg Fwd Diagnoses Acute psychosis F23
[2023-06-07 14:00] VITALS: BP 90/65; PULSE 73; RESP 16; TEMP 36.8; O2SAT 93
[2023-06-07 20:12] VITALS: BP 102/71; PULSE 98; RESP 16; TEMP 36.4; O2SAT 96
[2023-06-07] MEDS: paliperidone ER 6 mg Tablet 9 MG PO (20:23)
[2023-06-08 06:00] VITALS: BP 105/70; PULSE 96; RESP 16; TEMP 36.5; O2SAT 97
[2023-06-08] MEDS: ARIPiprazole 10 mg Tablet PO (08:57)
[2023-06-08] MEDS: divalproex ER 500 mg Tablet (24H) 1000 MG PO (08:57)
[2023-06-08] MEDS: nicotine 2 mg Gum BUCCAL (11:59)
[2023-06-08] MEDS: paliperidone palmitate 234 mg Syringe IM (12:17)
--- NOTE | 2023-06-08 12:17 | PC.NURSE ---
Administered invega Sustenna 234mg/1.5mL to patient in left deltoid muscle. Patient tolerated injection well. Lot:[id number] EXP: 11/2024
[2023-06-08 14:00] VITALS: BP 121/76; PULSE 111; RESP 16; TEMP 36.6; O2SAT 99
--- NOTE | 2023-06-08 15:29 | P.NPUPN_ITS ---
Subjective NPU Subjective: 32-year-old white female with a past history of methamphetamine abuse and psychosis admitted with psychotic symptoms in the absence of methamphetamine use. The patient continued to isolate herself on the milieu. She had reported having no side effects from her medication. She had continued to appear at times confused and continued to show limited evidence of any reasonable goal- directed activities. She had required some prompting for attending to activities of daily living. She had reported that she continued to be worried about leaving the hospital but refused to elaborate as to her concerns. She reported adequate sleep. She had received her Invega IM 234 mg shot today. Mental Status Exam MSE Comments: This is an overweight well-developed white female in hospital scrubs with li mited grooming and fleeting eye contact. No abnormal movements except for mild psychomotor retardation. She was somewhat cooperative with exam in no acute distress. Speech was normal in volume but decreased in spontaneity. Mood described as allright. Affect remained subdued and mood incongruent. Her thought process was linear but superficial. Thought content: Patient denied suicidal or homicidal ideation. She did appear guarded still. She did not appear to be attending to internal stimuli. Attention and concentration was improving and memory was more reliable but none were formally tested. She is alert and oriented to person and place. Insight was poor. Judgment was poor. Impulse control appeared poor. Vitals/I&O/Wt Last Vital Signs Temp 97.8 F 06/08/23 14:00 Pulse 111 H 06/08/23 14:00 Resp 16 06/08/23 14:00 BP 121/76 06/08/23 14:00 Pulse Ox 99 06/08/23 14:00 O2 Del Method Room Air 06/08/23 14:00 Weight last 48 hrs Weight 73.028 kg Data NPU 05/14/23 18:48 05/14/23 18:48 A&P Assessment and plan (1) Acute psychosis: Plan 32-year-old female who presents with psychosis in the absence of drug use with clear paranoid delusions and increased anger and agitation. She would likely require continued inpatient hospitalization. ?1. Encourage individual, group and milieu therapy. ?2. Recommend sober living treatment at the highest level of care to which the patient is willing to commit. 3. Therapeutic q-15 minute checks for safety.? 4. Continue Depakote 1000mg daily, discontinued abilify, continue Invega to 9 mg at night. IM 234 mg INVEGA given this morning. 5. 21-day hold hearing 05/22/2023. Patient placed on a 21-day hold. Involuntary Hold Information 96 Hour Hold: 96 Hour Involuntary Admission: Yes 96 Hour Hold Ending Date: 05/21/23 Attestations NPU Medical Necessity Statement*: Inpatient hospitalization is medically necessary and deemed to ?be ?the clinically appropriate intervention ?at this time.? Forced medications may be necessary although patient taking previously prescribed medications. The patient?s likely length of stay 7-10 days. Coding Level of Care Code Acute Code for Chg Fwd Diagnoses Acute psychosis F23
[2023-06-08 20:14] VITALS: BP 101/65; PULSE 114; RESP 16; TEMP 37; O2SAT 98
[2023-06-08] MEDS: paliperidone ER 9 mg Tablet PO (21:16)
[2023-06-09 06:00] VITALS: BP 93/51; PULSE 107; RESP 18; TEMP 36.5; O2SAT 97
[2023-06-09] MEDS: divalproex ER 500 mg Tablet (24H) 1000 MG PO (08:55)
[2023-06-09 13:06] VITALS: BP 109/71; PULSE 93; RESP 16; TEMP 37.2; O2SAT 97
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
[2023-06-09 19:59] VITALS: BP 99/64; PULSE 103; RESP 15; TEMP 37; O2SAT 96
[2023-06-09] MEDS: paliperidone ER 9 mg Tablet PO (20:11)
[2023-06-10 06:00] VITALS: BP 111/78; PULSE 143; RESP 16; TEMP 36.9; O2SAT 96
[2023-06-10] MEDS: divalproex ER 500 mg Tablet (24H) 1000 MG PO (07:47)
[2023-06-10] MEDS: nicotine 4 mg lozenge MUCOUS MEM (10:44)
[2023-06-10] MEDS: hyDROXYzine 25 mg Capsule 50 MG PO (10:45)
[2023-06-10] MEDS: nicotine 2 mg Gum BUCCAL (15:05)
[2023-06-10 15:15] VITALS: BP 106/64; PULSE 68; RESP 16; TEMP 36.3; O2SAT 96
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
[2023-06-10] MEDS: paliperidone ER 9 mg Tablet PO (20:04)
[2023-06-10 20:34] VITALS: BP 94/53; PULSE 90; RESP 16; TEMP 37.2; O2SAT 98
[2023-06-11 06:00] VITALS: BP 105/68; PULSE 85; RESP 15; TEMP 36.9; O2SAT 97
[2023-06-11] MEDS: divalproex ER 500 mg Tablet (24H) 1000 MG PO (09:04)
[2023-06-11 14:00] VITALS: BP 102/69; PULSE 86; RESP 14; TEMP 37.1; O2SAT 98
--- NOTE | 2023-06-11 16:07 | P.NPUPN_ITS ---
Subjective NPU Subjective: 32-year-old white female with a past history of methamphetamine abuse and psychosis admitted with psychotic symptoms currently in the absence of methamphetamine use. Patient had remained somewhat isolative in her room although she was able to attend groups. She had reported having a good visit with her mother today. She reported that she had spoken with her grandmother yesterday and felt comfortable about returning home. She had expressed some anxiety about seeing her stepfather has she had reported having a difficult relationship with him. She had denied any drug or alcohol use or any cravings. Patient had been attending to her activities of daily living better over the past few days. She had not endorsed any thoughts of having been persecuted or kidnapped today. Mental Status Exam MSE Comments: This is an overweight well-developed white female in hospital scrubs with adequ ate grooming and improved eye contact. No abnormal movements except for mild psychomotor retardation. She was somewhat cooperative with exam in no acute distress. Speech was normal in volume and normal in prosody. Mood described as good. Affect remained somewhat blunted. Her thought process was linear logical and goal directed today. Thought content: Patient denied suicidal or homicidal ideation. She did not appear to be attending to internal stimuli. There was no evidence of paranoia today. Attention and concentration was improving and memory was more reliable but none were formally tested. She is alert and oriented to person and place. Insight was improving.. Judgment was limited. Impulse control appeared improved. Vitals/I&O/Wt Last Vital Signs Temp 98.4 F 06/11/23 06:00 Pulse 85 06/11/23 06:00 Resp 15 06/11/23 06:00 BP 105/68 06/11/23 06:00 Pulse Ox 97 06/11/23 06:00 O2 Del Method Room Air 06/11/23 06:00 Data NPU 05/14/23 18:48 05/14/23 18:48 A&P Assessment and plan (1) Acute psychosis: Plan 32-year-old female who presents with psychosis in the absence of drug use with clear paranoid delusions and increased anger and agitation. She would likely require continued inpatient hospitalization. ?1. Encourage individual, group and milieu therapy. ?2. Recommend sober living treatment at the highest level of care to which the patient is willing to commit. 3. Therapeutic q-15 minute checks for safety.? 4. Continue Depakote 1000mg daily, continue Invega to 9 mg at night. IM 234 mg INVEGA given on 06/08/23 with next dose of 156mg IM due 06/12/23. Check depakote level, cbc with diff, ast/alt. 5. Patient here on hold now. Involuntary Hold Information 96 Hour Hold: 96 Hour Involuntary Admission: Yes 96 Hour Hold Ending Date: 05/21/23 Attestations NPU Medical Necessity Statement*: Inpatient hospitalization is medically necessary and deemed to ?be ?the clinically appropriate intervention ?at this time.? Patient improving. The patient?s likely length of stay 1-2 days. Coding Level of Care Code Acute Code for Chg Fwd Diagnoses Acute psychosis F23
[2023-06-11] MEDS: paliperidone ER 9 mg Tablet PO (20:23)
[2023-06-11 20:34] VITALS: BP 103/68; PULSE 86; RESP 16; TEMP 36.9; O2SAT 96
[2023-06-12 06:00] VITALS: BP 100/57; PULSE 112; RESP 15; TEMP 36.8; O2SAT 95
[2023-06-12] MEDS: divalproex ER 500 mg Tablet (24H) 1000 MG PO (08:10)
[2023-06-12 08:12] LABS: Basophils # 0.1 10^3/uL (0.0-0.1); Eosinophils # 0.2 10^3/uL (0.0-0.8); Eosinophils % 3.2 %; Hematocrit 45.2 % (36-47); Lymphocytes # 1.4 10^3/uL (0.8-4.8); Lymphocytes % 24.3 %; Mean Corpuscular Hemoglobin 31.5 pg (27-33); Mean Corpuscular Volume 95.6 fl (85-98); Mean Platelet Volume 9.1 fL (7.4-10.4); Monocytes # 0.9 10^3/uL (0.2-0.9); Monocytes % 14.4 %; Neutrophils # 3.34 10^3/uL (1.8-7.7); Neutrophils % 56.8 %; Nucleated Red Blood Cells % 0 %; Platelet Count 181 10^3/cmm (157-399); Red Blood Count 4.73 10^6/uL (3.85-5.65); Red Cell Distribution Width 11.6 % (12.1-15.1); White Blood Count 5.89 10^3/uL (3.29-11.43)
[2023-06-12 08:36] LABS: Valproic Acid Level 77.5 ug/mL (50-100)
[2023-06-12 08:51] LABS: Alanine Aminotransferase 9 U/L (0-33); Albumin Level 4.5 g/dL (3.5-5.2); Alkaline Phosphatase 45 U/L (35-105); Aspartate Amino Transferase 12 U/L (0-32); Globulin 2.4 g/dL (1.3-4.6); Total Bilirubin 0.3 mg/dL (0.15-1.2); Total Protein 6.9 g/dL (6.6-8.7)
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
[2023-06-12] MEDS: paliperidone palmitate 156 mg Syringe IM (12:33)
[2023-06-12 14:00] VITALS: BP 100/57; PULSE 112; RESP 15; TEMP 36.8; O2SAT 95
== END 2023-06-12 15:00 | disposition home or self-care (01) | DRG 885 ==
LOC: ER 19:29 → NP 19:50
PROVIDERS: Admitting Provider Psychiatry & Neurology Psychiatry; Emergency Provider Emergency Medicine; PCP Family Medicine; Visit Provider Psychiatry & Neurology Psychiatry
DX: F23 Brief psychotic disorder (principal); F22 Delusional disorders; F14.11 Cocaine abuse, in remission; F15.91 Other stimulant use, unspecified, in remission; F17.210 Nicotine dependence, cigarettes, uncomplicated; Z91.410 Personal history of adult physical and sexual abuse
CPT/HCPCS: 36415; 80053; 80076; 80164; 80306; 80307; 85025; 96372; 97150; 97165; 99285; Q0163

== ENCOUNTER → 2023-06-17 15:28 | Outpatient (BNVA) | payer MEDICAID, SELFPAY ==
[2023-02-19 11:34] VITALS: BP 108/69; BMI 28.2
== END ==
PROVIDERS: PCP Family Medicine; Visit Provider Family Medicine
DX: Z23 Encounter for immunization (principal); Z51.81 Encounter for therapeutic drug level monitoring; R63.1 Polydipsia
CPT/HCPCS: 80048; 80164